=== PATIENT | male | born 1955 | race Caucasian/White ===

== ENCOUNTER → 2019-12-15 09:09 | Outpatient (BNVA) | payer MEDICARE, MEDICAID, SELFPAY | PROVIDERS: PCP Internal Medicine; Visit Provider Family Medicine Adult Medicine | DX: M96.1 Postlaminectomy syndrome, not elsewhere classified (principal); M54.12 Radiculopathy, cervical region; Z79.891 Long term (current) use of opiate analgesic | CPT/HCPCS: 99212 ==

== ENCOUNTER → 2020-02-11 08:59 | Outpatient (BNVA) | payer MEDICARE, MEDICAID, SELFPAY | PROVIDERS: PCP Internal Medicine; Visit Provider Family Medicine Adult Medicine | DX: M54.12 Radiculopathy, cervical region (principal); M96.1 Postlaminectomy syndrome, not elsewhere classified | CPT/HCPCS: 99212 ==

== ENCOUNTER → 2020-03-29 08:32 | Outpatient (BNVA) | payer MEDICARE, MEDICAID, SELFPAY | PROVIDERS: PCP Internal Medicine; Visit Provider Family Medicine Adult Medicine | DX: M54.12 Radiculopathy, cervical region (principal); M96.1 Postlaminectomy syndrome, not elsewhere classified | CPT/HCPCS: 99212 ==

== ENCOUNTER → 2020-05-10 08:03 | Outpatient (BNVA) | payer MEDICARE, MEDICAID, SELFPAY | PROVIDERS: PCP Internal Medicine; Visit Provider Family Medicine Adult Medicine | DX: M54.12 Radiculopathy, cervical region (principal); M96.1 Postlaminectomy syndrome, not elsewhere classified | CPT/HCPCS: Q3014 ==

== ENCOUNTER 2020-09-11 10:21 | Emergency (ER) | payer MEDICARE, MEDICAID, SELFPAY ==
--- NOTE | ~2020-09-11 | XR_ITS ---
EXAMINATION: XR CHEST CLINICAL INFORMATION: Weakness COMPARISON: None TECHNIQUE: 2 views of the chest were obtained. FINDINGS: Devices overlie the patient. Mild rotation to the right. There is calcification and tortuosity aorta. The cardiac size is within normal limits. There is no hilar mass. The central vessels are mildly prominent without peripheral edema. There is no consolidation or major zone of atelectasis. Lung volumes are maintained. No significant pleural fluid or pneumothorax. There may be a loose body superimposing over the left glenohumeral joint and there may be a soft tissue calcification lateral to the right proximal humerus. There may be a loose body near the right coracoclavicular ligament region. XR/XR chest 2V IMPRESSION: No focal pneumonia. No alveolar edema.
[2020-09-11 10:29] VITALS: BP 143/91; PULSE 100; PULSE 82; RESP 18; TEMP 36.8; O2SAT 95; O2SAT 99; BMI 24.2
--- NOTE | 2020-09-11 10:48 | ECG_ITS ---
Test Reason : WEAKNESS Blood Pressure : / mmHG Vent. Rate : 081 BPM Atrial Rate : 076 BPM P-R Int : 000 ms QRS Dur : 090 ms QT Int : 408 ms P-R-T Axes : 000 013 039 degrees QTc Int : 473 ms Underlying artifact Likely sinus with PACs Abnormal ECG When compared with ECG of 05-SEP-2007 15:37, No significant changes seen Referred By: Orly Duque Electronically Signed By:SAL HULL
--- NOTE | 2020-09-11 10:51 | PC.NURSE ---
pt refusing rectal temp
--- NOTE | 2020-09-11 11:01 | ED.WEAKNESS ---
HPI - Weakness General Chief complaint: Weakness <EVA Britton Last Filed: 09/11/20 14:21> Stated complaint: FATIGUE <EVA Britton Last Filed: 09/11/20 14:21> Time Seen by Provider: 09/11/20 10:37 <EVA Britton Last Filed: 09/11/20 14:21> Source: patient and EMS <EVA Britton Last Filed: 09/11/20 14:21> Mode of arrival: EMS <EVA Britton Last Filed: 09/11/20 14:21> History of Present Illness HPI Narrative: 64-year-old male with a past medical history of anxiety, HTN, depression, HLD, PVD, BIBA c/o increased weakness over the past week with diaphoresis, chills, anorexia, lightheadedness, and multiple falls. Patient reports generalized fatigue. Reports episodes of lightheadedness causing him sometimes to fall to ground/catches himself most times, denies any head trauma or LOC during these incidents. Denies fever, headache, CP/SOB, abdominal pain, nausea/vomiting, dysuria/hematuria, travel, tick/insect bites, rash <EVA Britton Last Filed: 09/11/20 14:21> MD Complaint: generalized weakness and lack of energy <EVA Britton Last Filed: 09/11/20 14:21> Related Data Home medications: Home Medications Medication Instructions Recorded Confirmed clopidogrel 75 mg tablet 75 mg PO DAILY 12/15/19 06/10/20 mirtazapine 15 mg tablet 15 mg PO BEDTIME 12/15/19 06/10/20 naproxen 500 mg tablet 500 mg PO BID 12/15/19 06/10/20 aspirin 81 mg tablet,delayed 81 mg PO DAILY 12/23/19 06/10/20 release Previous Rx's Medication Instructions Recorded naloxone 4 mg/actuation nasal spray 4 mg INTRANASAL Q2M 1 Days #2 ea 05/10/20 oxycodone-acetaminophen 5 mg-325 1 tab PO Q6H PRN 15 Days #60 tab 05/17/20 mg tablet clonidine HCl 0.1 mg tablet 0.1 mg PO TID 30 Days #180 tab 06/09/20 pravastatin 20 mg tablet 20 mg PO DAILY #90 tab 07/25/20 lisinopril 20 2 tab PO DAILY #180 tab 08/02/20 mg-hydrochlorothiazide 12.5 mg tablet carisoprodol 350 mg tablet 350 mg PO DAILY PRN 30 Days #30 tab 08/17/20 <EVA Britton - Last Filed: 09/11/20 14:21> Allergies/Adverse reactions: Allergies Allergy/AdvReac Type Severity Reaction Status Date / Time No Known Allergies Allergy Mild NONE Verified 06/12/20 10:20 <EVA Britton - Last Filed: 09/11/20 14:21> Review of Systems Review of Systems: Constitutional: No Weight loss, No Fever, + Chills, + Night Sweats, + Fatigue, + Malaise ENT/Mouth: No sore throat, No Rhinorrhea, No Swallowing Difficulty Eyes: No Eye Pain, No Swelling Cardiovascular: No Chest Pain, No SOB, No Palpitations Respiratory: No Cough, No Sputum Gastrointestinal: No Nausea, No Vomiting, No Diarrhea, No Constipation, No Abdominal pain Genitourinary: No irregular bleeding, No Dysuria, No Hematuria, No Flank Pain Musculoskeletal: No joint pain, No Myalgias, No Joint Swelling Skin: No Skin Lesions, No rash Neuro: + Weakness, No Numbness, No Loss of Consciousness, +lightheadedness, No Headache <EVA Britton Last Filed: 09/11/20 14:21> Yes all other systems are reviewed and are negative <EVA Britton Last Filed: 09/11/20 14:21> Neurologic: Denies Abnormal speech present <EVA Britton Last Filed: 09/11/20 14:21> [facility] Past Medical History Attestation statement: The following information was validated with the patient. <EVA Britton Last Filed: 09/11/20 14:21> Medical History: Medical History Anxiety Asymptomatic left ventricular systolic dysfunction Benign essential hypertension Cervical radiculopathy Degenerative lumbar spinal stenosis Depression Failed back syndrome Femoral-tibial bypass graft occlusion, right Hyperlipidemia Hypertension Impaired fasting glucose Postlaminectomy syndrome Pure hypercholesterolemia PVD (peripheral vascular disease) Renal cyst <EVA Britton Last Filed: 09/11/20 14:21> Surgical History: Surgical History History of femoropopliteal bypass History of lumbar surgery S/P laminectomy <EVA Britton - Last Filed: 09/11/20 14:21> Family History Family History: Family History Father Myocardial infarction Mother Alzheimers disease <EVA Britton - Last Filed: 09/11/20 14:21> Social History Social History: Social History Household Members Other:: Alone Alcohol intake: never Patient Tobacco Use Status: Former Tobacco user Smoked in Last 30 Days: No Use of substances other than those prescribed or required for medical reasons: No Advance Directives: No Advance Directives Information Provided: No Current occupation: Disabled approx 10 years - did various jobs <EVA Britton - Last Filed: 09/11/20 14:21> Physical Exam Vital Signs: Vital Signs: Last Vital Signs Temp 98.2 F 09/11/20 10:29 Pulse 82 09/11/20 10:29 Resp 18 09/11/20 10:29 BP 143/91 H 09/11/20 10:29 Pulse Ox 95 09/11/20 10:29 Body Mass Index 24.2 <EVA Britton - Last Filed: 09/11/20 14:21> Vital Signs: Last Vital Signs Temp 98.2 F 09/11/20 10:29 Pulse 82 09/11/20 10:29 Resp 18 09/11/20 10:29 BP 143/91 H 09/11/20 10:29 Pulse Ox 95 09/11/20 10:29 Body Mass Index 24.2 <Luis Felipe Meyer MD - Last Filed: 09/11/20 12:08> Const: Other: diaphoretic/clammy <EVA Britton - Last Filed: 09/11/20 14:21> General: cooperative <EVA Britton - Last Filed: 09/11/20 14:21> Orientation/consciousness: patient oriented x3 <Orly Reynoldsoste, [facility] Last Filed: 09/11/20 14:21> Limitations: no limitations <Orly Dunia [facility] Last Filed: 09/11/20 14:21> HENMT: Head: Yes normal to inspection <Orly Dunia [facility] Last Filed: 09/11/20 14:21> Ears: hearing grossly normal bilaterally <Orly Duque [facility] Last Filed: 09/11/20 14:21> General nose exam: Normal external nose present <Orlychristiano Duque [facility] Last Filed: 09/11/20 14:21> Face and sinus: Yes normal facial exam <Orlychristiano Duque [facility] Last Filed: 09/11/20 14:21> Eyes: General: appearance normal, both eyes and all related structures <Orlychristiano Duque [facility] Last Filed: 09/11/20 14:21> Pupils: Equal, round and reactive pupils present <Orly Duque [facility] Last Filed: 09/11/20 14:21> EOM: EOMs intact bilaterally <Orlychristiano Duque [facility] Last Filed: 09/11/20 14:21> Neck: Neck: Yes normal visual inspection <Orlychristiano Duque [facility] Last Filed: 09/11/20 14:21> Resp: Effort & Inspection: normal respiratory effort <Orlychristiano Duque [facility] Last Filed: 09/11/20 14:21> Auscultation: clear to auscultation bilaterally, no rales, no rhonchi and no wheezes <Orly Duque [facility] Last Filed: 09/11/20 14:21> Cardio: Rate: regular rate <Orlychristiano Duque [facility] Last Filed: 09/11/20 14:21> Heart sounds: S1 normal heart sound present and S2 normal heart sound present <Orly Duque [facility] Last Filed: 09/11/20 14:21> GI: Inspection: Yes normal to inspection <Orly Duque [facility] Last Filed: 09/11/20 14:21> Palpation (GI): Soft to palpation, nontender, no guarding and not rigid <Orly Duque [facility] Last Filed: 09/11/20 14:21> Skin: Rashes: no rashes <Orly Duque PA - Last Filed: 09/11/20 14:21> Wounds: no wounds <Orly Duque PA - Last Filed: 09/11/20 14:21> Neuro: General: patient oriented x3, tone normal, moves all extremities, no focal motor deficits and CN's II-XI intact bilaterally <Orly Duque PA - Last Filed: 09/11/20 14:21> Cranial nerves: Yes Equal, round and reactive pupils present <Orly Duque PA - Last Filed: 09/11/20 14:21> Cognition (Neuro): normal cognition <Orly Duque PA - Last Filed: 09/11/20 14:21> Speech: No Abnormal speech present <Orly Duque PA - Last Filed: 09/11/20 14:21> Motor exam (neuro): 5/5 motor strength present throughout and Pronator motor function not present <Orly Duque PA - Last Filed: 09/11/20 14:21> Coordination: [id number] test normal <Orly Reynoldsamber PA - Last Filed: 09/11/20 14:21> Extrem: General: Yes normal to inspection and Yes no pedal edema <Orly Reynoldsamber PA - Last Filed: 09/11/20 14:21> Course Course Course Narrative: -1121--AFib appears new for patient > likely reason for patient falling -1158--no leukocytosis, H/H is stable, potassium slightly low 40 mEq p.o. repletion ordered. + BO BUN 37 / Creatinine 1.49 likely from dehydration will give IVF and repeat -AST/ALT mildly elevated, troponin 12.4 > will obtain 3 hour repeat, CPK elevated to 980 XR chest 2V IMPRESSION: No focal pneumonia. No alveolar edema. >> plan to admit for further management. 1237pm-discussed with patient plan for admission for further management which he is refusing secondary to having pets at home, discussed with patient he will need to sign out against medical advice, he is A&O x3 competent to make his own decisions. Will give 3 L IVF, attempt repeat lab draw if patient willing to stay then have him sign out AMA -1419--repeat troponin without 50% rise, MO unlikely. Chads Vasc score 3 which would recommend patient to be started on anticoagulation, however due to recent/frequent falls and BO will hold off on initiating anticoagulation due to risk of bleeding, this was discussed with patient including need her for close follow-up with Cardiology. Patient is signing out AMA, AMA risks discussed <EVA Britton - Last Filed: 09/11/20 14:21> Reevaluation(s) Reevaluation #1: I have discussed the case and management with the NATHANIEL <Luis Felipe Meyer MD - Last Filed: 09/11/20 12:08> MDM - Weakness MDM Narrative Medical decision making narrative: 64-year-old male with a past medical history of anxiety, HTN, depression, HLD, PVD, BIBA c/o increased weakness over the past week with diaphoresis, chills, anorexia, lightheadedness, and multiple falls. Patient reports generalized fatigue. Reports episodes of lightheadedness causing him sometimes to fall to ground/catches himself most times. On exam vital signs stable, profusely diaphoretic, exam nonfocal, lungs CTA, abdomen soft/nontender. Concern for metabolic abnormalities vs infectious etiology vs withdrawal vs ? Tick-borne illness Pain: EKG, labs, UA, CXR, IVF, reassess <EVA Britton - Last Filed: 09/11/20 14:21> Medical Records Attestation: I reviewed the patient's medical records. <EVA Britton - Last Filed: 09/11/20 14:21> Lab Data Attestation: I reviewed the patient's lab results. <EVA Britton - Last Filed: 09/11/20 14:21> Result diagrams: : 09/11/20 11:06 09/11/20 11:06 <EVA Britton - Last Filed: 09/11/20 14:21> Labs: Lab Results 09/11/20 09/11/20 09/11/20 Range/Units 11:06 11:06 11:06 WBC 8.8 (4.8-10.8) X10*3/uL RBC 5.34 (4.60-5.80) X10*6/uL Hgb 16.2 (14.0-18.0) g/dl Hct 46.7 (42-52) % MCV 87.5 (80-98) fL MCH 30.3 (27.0-33.0) pg MCHC 34.7 (31.0-36.0) g/dl RDW 13.2 (11.0-16.0) % Plt Count 321 (160-400) X10*3/uL MPV 11.3 (9.4-12.4) fL Immature Gran % (Auto) 0.6 H (0.0-0.4) % Neut % (Auto) 69.6 (45-73) % Lymph % (Auto) 15.6 L (20-40) % [place] % (Auto) 12.5 H (2-11) % Eos % (Auto) 1.5 (0-4) % Baso % (Auto) 0.2 (0-2) % Lymph # (Auto) 1.4 (1.2-4.9) X10*3/uL [place] # (Auto) 1.1 (0.1-1.2) X10*3/uL Eos # (Auto) 0.1 (0.0-0.4) X10*3/uL Baso # (Auto) 0.0 (0.0-0.2) X10*3/uL Abs Immat Gran (auto) 0.05 H (0.00-0.03) X10*3/uL Absolute Neuts (auto) 6.1 (2.0-8.3) X10*3/uL Absolute Nucleated RBC 0.000 (0.0-0.012) X10*3/uL Nucleated RBC % (auto) 0.0 (0.0-0.2) /100WBC Sodium 136 (135-145) mmol/L Potassium 3.1 L (3.3-5.1) mmol/L Chloride 95 L (96-108) mmol/L Carbon Dioxide 27 (22-29) mmol/L Anion Gap 17 (12-20) BUN 37 H (9-16) mg/dL Creatinine 1.49 H (0.5-1.4) mg/dL Estim Creat Clear Calc 44.0 Estimated GFR 47 Random Glucose 189 H (60-115) mg/dL Lactic Acid (0.5-2.0) mmol/L Calcium 9.2 (8.4-10.2) mg/dL Magnesium 2.9 H (1.6-2.6) mg/dL Total Bilirubin 0.6 (0.0-1.0) mg/dL Direct Bilirubin 0.3 (0.0-0.5) mg/dL AST 75 H (5-37) U/L ALT 61 H (0-40) U/L Alkaline Phosphatase 50 (39-117) U/L Total Creatine Kinase 980 H (38-174) U/L Troponin I High Sens 12.4 (<3.5-35.0) ng/L Total Protein 7.3 (6.5-8.0) g/dL Albumin 4.0 (3.5-5.0) g/dL Lipase 40 (8-78) U/L Salicylates < 5.0 L (15-30) mg/dL Acetaminophen 1 (<30) mcg/mL Ethyl Alcohol mg/dL Acetone, Qual (Negative) 09/11/20 09/11/20 09/11/20 Range/Units 11:06 11:06 11:06 WBC (4.8-10.8) X10*3/uL RBC (4.60-5.80) X10*6/uL Hgb (14.0-18.0) g/dl Hct (42-52) % MCV (80-98) fL MCH (27.0-33.0) pg MCHC (31.0-36.0) g/dl RDW (11.0-16.0) % Plt Count (160-400) X10*3/uL MPV (9.4-12.4) fL Immature Gran % (Auto) (0.0-0.4) % Neut % (Auto) (45-73) % Lymph % (Auto) (20-40) % [place] % (Auto) (2-11) % Eos % (Auto) (0-4) % Baso % (Auto) (0-2) % Lymph # (Auto) (1.2-4.9) X10*3/uL [place] # (Auto) (0.1-1.2) X10*3/uL Eos # (Auto) (0.0-0.4) X10*3/uL Baso # (Auto) (0.0-0.2) X10*3/uL Abs Immat Gran (auto) (0.00-0.03) X10*3/uL Absolute Neuts (auto) (2.0-8.3) X10*3/uL Absolute Nucleated RBC (0.0-0.012) X10*3/uL Nucleated RBC % (auto) (0.0-0.2) /100WBC Sodium (135-145) mmol/L Potassium (3.3-5.1) mmol/L Chloride (96-108) mmol/L Carbon Dioxide (22-29) mmol/L Anion Gap (12-20) BUN (9-16) mg/dL Creatinine (0.5-1.4) mg/dL Estim Creat Clear Calc Estimated GFR Random Glucose (60-115) mg/dL Lactic Acid 1.2 (0.5-2.0) mmol/L Calcium (8.4-10.2) mg/dL Magnesium (1.6-2.6) mg/dL Total Bilirubin (0.0-1.0) mg/dL Direct Bilirubin (0.0-0.5) mg/dL AST (5-37) U/L ALT (0-40) U/L Alkaline Phosphatase (39-117) U/L Total Creatine Kinase (38-174) U/L Troponin I High Sens (<3.5-35.0) ng/L Total Protein (6.5-8.0) g/dL Albumin (3.5-5.0) g/dL Lipase (8-78) U/L Salicylates (15-30) mg/dL Acetaminophen (<30) mcg/mL Ethyl Alcohol < 10 mg/dL Acetone, Qual Negative (Negative) 09/11/20 Range/Units 12:53 WBC (4.8-10.8) X10*3/uL RBC (4.60-5.80) X10*6/uL Hgb (14.0-18.0) g/dl Hct (42-52) % MCV (80-98) fL MCH (27.0-33.0) pg MCHC (31.0-36.0) g/dl RDW (11.0-16.0) % Plt Count (160-400) X10*3/uL MPV (9.4-12.4) fL Immature Gran % (Auto) (0.0-0.4) % Neut % (Auto) (45-73) % Lymph % (Auto) (20-40) % [place] % (Auto) (2-11) % Eos % (Auto) (0-4) % Baso % (Auto) (0-2) % Lymph # (Auto) (1.2-4.9) X10*3/uL [place] # (Auto) (0.1-1.2) X10*3/uL Eos # (Auto) (0.0-0.4) X10*3/uL Baso # (Auto) (0.0-0.2) X10*3/uL Abs Immat Gran (auto) (0.00-0.03) X10*3/uL Absolute Neuts (auto) (2.0-8.3) X10*3/uL Absolute Nucleated RBC (0.0-0.012) X10*3/uL Nucleated RBC % (auto) (0.0-0.2) /100WBC Sodium (135-145) mmol/L Potassium (3.3-5.1) mmol/L Chloride (96-108) mmol/L Carbon Dioxide (22-29) mmol/L Anion Gap (12-20) BUN (9-16) mg/dL Creatinine (0.5-1.4) mg/dL Estim Creat Clear Calc Estimated GFR Random Glucose (60-115) mg/dL Lactic Acid (0.5-2.0) mmol/L Calcium (8.4-10.2) mg/dL Magnesium (1.6-2.6) mg/dL Total Bilirubin (0.0-1.0) mg/dL Direct Bilirubin (0.0-0.5) mg/dL AST (5-37) U/L ALT (0-40) U/L Alkaline Phosphatase (39-117) U/L Total Creatine Kinase (38-174) U/L Troponin I High Sens 13.7 (<3.5-35.0) ng/L Total Protein (6.5-8.0) g/dL Albumin (3.5-5.0) g/dL Lipase (8-78) U/L Salicylates (15-30) mg/dL Acetaminophen (<30) mcg/mL Ethyl Alcohol mg/dL Acetone, Qual (Negative) <Orly Dunia, PA - Last Filed: 09/11/20 14:21> Lab Results 09/11/20 09/11/20 09/11/20 Range/Units 11:06 11:06 11:06 WBC 8.8 (4.8-10.8) X10*3/uL RBC 5.34 (4.60-5.80) X10*6/uL Hgb 16.2 (14.0-18.0) g/dl Hct 46.7 (42-52) % MCV 87.5 (80-98) fL MCH 30.3 (27.0-33.0) pg MCHC 34.7 (31.0-36.0) g/dl RDW 13.2 (11.0-16.0) % Plt Count 321 (160-400) X10*3/uL MPV 11.3 (9.4-12.4) fL Immature Gran % (Auto) 0.6 H (0.0-0.4) % Neut % (Auto) 69.6 (45-73) % Lymph % (Auto) 15.6 L (20-40) % [place] % (Auto) 12.5 H (2-11) % Eos % (Auto) 1.5 (0-4) % Baso % (Auto) 0.2 (0-2) % Lymph # (Auto) 1.4 (1.2-4.9) X10*3/uL [place] # (Auto) 1.1 (0.1-1.2) X10*3/uL Eos # (Auto) 0.1 (0.0-0.4) X10*3/uL Baso # (Auto) 0.0 (0.0-0.2) X10*3/uL Abs Immat Gran (auto) 0.05 H (0.00-0.03) X10*3/uL Absolute Neuts (auto) 6.1 (2.0-8.3) X10*3/uL Absolute Nucleated RBC 0.000 (0.0-0.012) X10*3/uL Nucleated RBC % (auto) 0.0 (0.0-0.2) /100WBC Sodium 136 (135-145) mmol/L Potassium 3.1 L (3.3-5.1) mmol/L Chloride 95 L (96-108) mmol/L Carbon Dioxide 27 (22-29) mmol/L Anion Gap 17 (12-20) BUN 37 H (9-16) mg/dL Creatinine 1.49 H (0.5-1.4) mg/dL Estim Creat Clear Calc 44.0 Estimated GFR 47 Random Glucose 189 H (60-115) mg/dL Lactic Acid (0.5-2.0) mmol/L Calcium 9.2 (8.4-10.2) mg/dL Magnesium 2.9 H (1.6-2.6) mg/dL Total Bilirubin 0.6 (0.0-1.0) mg/dL Direct Bilirubin 0.3 (0.0-0.5) mg/dL AST 75 H (5-37) U/L ALT 61 H (0-40) U/L Alkaline Phosphatase 50 (39-117) U/L Total Creatine Kinase 980 H (38-174) U/L Troponin I High Sens 12.4 (<3.5-35.0) ng/L Total Protein 7.3 (6.5-8.0) g/dL Albumin 4.0 (3.5-5.0) g/dL Lipase 40 (8-78) U/L Salicylates < 5.0 L (15-30) mg/dL Acetaminophen 1 (<30) mcg/mL Ethyl Alcohol mg/dL Acetone, Qual (Negative) 09/11/20 09/11/20 09/11/20 Range/Units 11:06 11:06 11:06 WBC (4.8-10.8) X10*3/uL RBC (4.60-5.80) X10*6/uL Hgb (14.0-18.0) g/dl Hct (42-52) % MCV (80-98) fL MCH (27.0-33.0) pg MCHC (31.0-36.0) g/dl RDW (11.0-16.0) % Plt Count (160-400) X10*3/uL MPV (9.4-12.4) fL Immature Gran % (Auto) (0.0-0.4) % Neut % (Auto) (45-73) % Lymph % (Auto) (20-40) % [place] % (Auto) (2-11) % Eos % (Auto) (0-4) % Baso % (Auto) (0-2) % Lymph # (Auto) (1.2-4.9) X10*3/uL [place] # (Auto) (0.1-1.2) X10*3/uL Eos # (Auto) (0.0-0.4) X10*3/uL Baso # (Auto) (0.0-0.2) X10*3/uL Abs Immat Gran (auto) (0.00-0.03) X10*3/uL Absolute Neuts (auto) (2.0-8.3) X10*3/uL Absolute Nucleated RBC (0.0-0.012) X10*3/uL Nucleated RBC % (auto) (0.0-0.2) /100WBC Sodium (135-145) mmol/L Potassium (3.3-5.1) mmol/L Chloride (96-108) mmol/L Carbon Dioxide (22-29) mmol/L Anion Gap (12-20) BUN (9-16) mg/dL Creatinine (0.5-1.4) mg/dL Estim Creat Clear Calc Estimated GFR Random Glucose (60-115) mg/dL Lactic Acid 1.2 (0.5-2.0) mmol/L Calcium (8.4-10.2) mg/dL Magnesium (1.6-2.6) mg/dL Total Bilirubin (0.0-1.0) mg/dL Direct Bilirubin (0.0-0.5) mg/dL AST (5-37) U/L ALT (0-40) U/L Alkaline Phosphatase (39-117) U/L Total Creatine Kinase (38-174) U/L Troponin I High Sens (<3.5-35.0) ng/L Total Protein (6.5-8.0) g/dL Albumin (3.5-5.0) g/dL Lipase (8-78) U/L Salicylates (15-30) mg/dL Acetaminophen (<30) mcg/mL Ethyl Alcohol < 10 mg/dL Acetone, Qual Negative (Negative) 09/11/20 Range/Units 12:53 WBC (4.8-10.8) X10*3/uL RBC (4.60-5.80) X10*6/uL Hgb (14.0-18.0) g/dl Hct (42-52) % MCV (80-98) fL MCH (27.0-33.0) pg MCHC (31.0-36.0) g/dl RDW (11.0-16.0) % Plt Count (160-400) X10*3/uL MPV (9.4-12.4) fL Immature Gran % (Auto) (0.0-0.4) % Neut % (Auto) (45-73) % Lymph % (Auto) (20-40) % [place] % (Auto) (2-11) % Eos % (Auto) (0-4) % Baso % (Auto) (0-2) % Lymph # (Auto) (1.2-4.9) X10*3/uL [place] # (Auto) (0.1-1.2) X10*3/uL Eos # (Auto) (0.0-0.4) X10*3/uL Baso # (Auto) (0.0-0.2) X10*3/uL Abs Immat Gran (auto) (0.00-0.03) X10*3/uL Absolute Neuts (auto) (2.0-8.3) X10*3/uL Absolute Nucleated RBC (0.0-0.012) X10*3/uL Nucleated RBC % (auto) (0.0-0.2) /100WBC Sodium (135-145) mmol/L Potassium (3.3-5.1) mmol/L Chloride (96-108) mmol/L Carbon Dioxide (22-29) mmol/L Anion Gap (12-20) BUN (9-16) mg/dL Creatinine (0.5-1.4) mg/dL Estim Creat Clear Calc Estimated GFR Random Glucose (60-115) mg/dL Lactic Acid (0.5-2.0) mmol/L Calcium (8.4-10.2) mg/dL Magnesium (1.6-2.6) mg/dL Total Bilirubin (0.0-1.0) mg/dL Direct Bilirubin (0.0-0.5) mg/dL AST (5-37) U/L ALT (0-40) U/L Alkaline Phosphatase (39-117) U/L Total Creatine Kinase (38-174) U/L Troponin I High Sens 13.7 (<3.5-35.0) ng/L Total Protein (6.5-8.0) g/dL Albumin (3.5-5.0) g/dL Lipase (8-78) U/L Salicylates (15-30) mg/dL Acetaminophen (<30) mcg/mL Ethyl Alcohol mg/dL Acetone, Qual (Negative) <Luis Felipe Meyer MD - Last Filed: 09/11/20 12:08> ECG Data Attestation: I personally reviewed and interpreted this ECG as follows: <EVA Britton - Last Filed: 09/11/20 14:21> ECG interpretation date: 09/11/20 <EVA Britton - Last Filed: 09/11/20 14:21> ECG interpretation time: 11:08 <EVA Britton - Last Filed: 09/11/20 14:21> Prior ECG tracings: available for review <EVA Britton - Last Filed: 09/11/20 14:21> Interpretation: EKG showing atrial fibrillation with a rate of 81. QTC 473. Artifact present, no STEMI <EVA Britton - Last Filed: 09/11/20 14:21> Scores Additional Scores [id number] Score: Score: 3 <EVA Britton Last Filed: 09/11/20 14:21> Comment: ?moderate-high? risk and should otherwise be an anticoagulation candidate >> patient already takes aspirin 81 and Plavix. However patient its presentation to emergency department is for weakness with multiple falls, will not initiate anticoagulation therapy due to increased risk of bleeding with falls. <EVA Britton Last Filed: 09/11/20 14:21> Discharge Plan Discharge Clinical Impression: Atrial fibrillation, new onset, BO (acute kidney injury), Rhabdomyolysis, Hypokalemia <EVA Britton Last Filed: 09/11/20 14:21> Patient Disposition: Left Against Medical Advice <EVA Britton Last Filed: 09/11/20 14:21> Instructions: A-fib (Atrial Fibrillation) (ED), Acute Kidney Injury (DC), Rhabdomyolysis (ED) <EVA Britton - Last Filed: 09/11/20 14:21> Additional Instructions: You are in a new heart rhythm called atrial fibrillation, this with you at high risk of strokes, you should be on a blood thinner however due to your kidney injury and frequent/recent falls this puts you at high risk of bleeding thus we did not start you on a blood thinner today Continue taking her aspirin and Plavix, you need to see a crop research scientist as soon as possible Your kidneys are also hurting, you need to push fluids, you have high levels of muscle breakdown in her system, this can lead to kidney failure Against medical advice, you are welcome to return any time for treatment, if her symptoms persist or worsen, you have more or recent falls, you are unable to eat or drink, developed chest pain or shortness of breath, any stroke like symptoms please return to the ED immediately COVID-19 and Lyme titer are pending right now, if these are positive you should get a phone call If you leave you may , go further into renal failure, eventually require dialysis and permanently become disabled <EVA Britton - Last Filed: 09/11/20 14:21> Prescriptions: No Action clonidine HCl 0.1 mg tablet 0.1 mg PO TID 30 Days Qty: 180 RF: 0 pravastatin 20 mg tablet 20 mg PO DAILY Qty: 90 RF: 1 lisinopril-hydrochlorothiazide 20-12.5 mg tablet 2 tab PO DAILY Qty: 180 RF: 1 carisoprodol 350 mg tablet 350 mg PO DAILY PRN (Reason: muscle pain) 30 Days Qty: 30 RF: 0 aspirin [Adult Low Dose Aspirin] 81 mg tablet,delayed release (DR/EC) 81 mg PO DAILY RF: 0 clopidogrel 75 mg tablet 75 mg PO DAILY RF: 0 mirtazapine 15 mg tablet 15 mg PO BEDTIME RF: 0 naproxen 500 mg tablet 500 mg PO BID RF: 0 Narcan 4 mg/actuation spray,non-aerosol 4 mg intranasal Q2M 1 Days Qty: 2 RF: 1 oxycodone-acetaminophen 5-325 mg tablet 1 tab PO Q6H PRN (Reason: pain) 15 Days Qty: 60 RF: 0 Hold Instructions: Doctor's Order <EVA Britton - Last Filed: 09/11/20 14:21> Referrals: Henrry Barnard MD [Primary Care Provider] - 2 days Jake Flores MD [Physician] - 2 days <EVA Britton - Last Filed: 09/11/20 14:21>
[2020-09-11 11:12] LABS: MANUAL DIFF FLAG NO
[2020-09-11 11:14] LABS: Basophils Percent Auto 0.2 % (0-2); Eosinophils Absolute Auto 0.1 X10*3/uL (0.0-0.4); Eosinophils Percent Auto 1.5 % (0-4); Hematocrit 46.7 % (42-52); Hemoglobin 16.2 g/dl (14.0-18.0); Imm Gran Abs Auto 0.05 X10*3/uL (0.00-0.03); Imm Gran Pct Auto 0.6 % (0.0-0.4); Lymphocytes Absolute Auto 1.4 X10*3/uL (1.2-4.9); Lymphocytes Percent Auto 15.6 % (20-40); Mean Corpuscular HGB Conc 34.7 g/dl (31.0-36.0); Mean Corpuscular Hemoglobin 30.3 pg (27.0-33.0); Mean Corpuscular Volume 87.5 fL (80-98); Mean Platelet Volume 11.3 fL (9.4-12.4); Monocytes Absolute Auto 1.1 X10*3/uL (0.1-1.2); Monocytes Percent Auto 12.5 % (2-11); Neutrophils Absolute Auto 6.1 X10*3/uL (2.0-8.3); Neutrophils Percent Auto 69.6 % (45-73); Platelet Count 321 X10*3/uL (160-400); Red Blood Count 5.34 X10*6/uL (4.60-5.80); Red Cell Distribution Width 13.2 % (11.0-16.0); White Blood Count 8.8 X10*3/uL (4.8-10.8)
[2020-09-11] MEDS: 0.9 % Sodium Chloride 1,000 ML 999 ML IVCONT ×3 (11:23→12:49)
[2020-09-11 11:32] LABS: Lactic Acid 1.2 mmol/L (0.5-2.0)
[2020-09-11 11:33] LABS: Acetone, serum QL Negative (Negative)
[2020-09-11 11:34] LABS: Ethanol < 10 mg/dL
[2020-09-11 11:38] LABS: Alanine Aminotransferase 61 U/L (0-40); Alkaline Phosphatase 50 U/L (39-117); Anion Gap 17 (12-20); Aspartate Amino Transferase 75 U/L (5-37); Bilirubin Direct 0.3 mg/dL (0.0-0.5); Bilirubin Total 0.6 mg/dL (0.0-1.0); Blood Urea Nitrogen 37 mg/dL (9-16); Calcium 9.2 mg/dL (8.4-10.2); Carbon Dioxide 27 mmol/L (22-29); Chloride 95 mmol/L (96-108); Estimated Glomerular Filt Rate 47; Glucose Random 189 mg/dL (60-115); Lipase 40 U/L (8-78); Magnesium 2.9 mg/dL (1.6-2.6); Potassium 3.1 mmol/L (3.3-5.1); Sodium 136 mmol/L (135-145); Total Protein 7.3 g/dL (6.5-8.0)
[2020-09-11 11:41] LABS: Troponin-I High Sensitivity 12.4 ng/L (<3.5-35.0)
[2020-09-11] MEDS: Potassium Chloride Packet 20 MEQ PACKET 40 MEQ PO (12:18)
[2020-09-11 12:25] LABS: Salicylate < 5.0 mg/dL (15-30)
[2020-09-11 12:33] LABS: Acetaminophen LAB 1 mcg/mL (<30)
[2020-09-11 13:25] LABS: Troponin-I High Sensitivity 13.7 ng/L (<3.5-35.0)
--- NOTE | 2020-09-11 14:00 | PC.NURSE ---
RN aware PATIENT REFUSED LAB WORK
[2020-09-11 14:09] LABS: Influenza A PCR NEGATIVE (Negative); Influenza B PCR NEGATIVE (Negative); Resp Syncy Virus RNA Qual PCR NEGATIVE (Negative); SARS COV2 PCR INHOUSE NEGATIVE (Negative)
[2020-09-12 18:05] LABS: Lyme Abs Screen <0.90 index
== END 2020-09-11 14:42 | disposition left against medical advice (07) ==
PROVIDERS: Physician Assistant; Emergency Provider Emergency Medicine; PCP Internal Medicine
DX: I48.91 Unspecified atrial fibrillation (principal); N17.9 Acute kidney failure, unspecified; M62.82 Rhabdomyolysis; E87.6 Hypokalemia; R29.6 Repeated falls; I10 Essential (primary) hypertension; E78.00 Pure hypercholesterolemia, unspecified; E78.5 Hyperlipidemia, unspecified; Z20.822 Contact with and (suspected) exposure to COVID-19; Z79.02 Long term (current) use of antithrombotics/antiplatelets; Z79.899 Other long term (current) drug therapy; Z79.82 Long term (current) use of aspirin
CPT/HCPCS: 0241U; 36415; 71046; 80048; 80076; 80143; 80179; 82009; 82077; 82550; 83605; 83690; 83735; 84484; 85025; 86617; 86618; 87040; 87147; 87205; 93005; 96360; 96361; 99284; 99285

== ENCOUNTER → 2022-01-24 10:58 | Outpatient (BNVA) | payer MEDICARE, MEDICAID, SELFPAY | PROVIDERS: PCP Internal Medicine; Visit Provider Orthopaedic Surgery | DX: M65.332 Trigger finger, left middle finger (principal) | CPT/HCPCS: 20550; 99202; J1100 ==

== ENCOUNTER 2022-12-25 10:38 | Outpatient (AMB) | payer MEDICARE, MEDICAID, SELFPAY ==
--- NOTE | 2022-12-25 11:07 | MHC.PC.OV ---
Vital Signs 12/25/22 11:08 Height 5 ft 3 in Weight 137 lb 4 oz BMI 24.3 BP 132/72 Blood Pressure Location Lt brachial Position Sitting Pulse 65 Pulse Source Pulse Oximeter Pulse Oximetry (%) 97 Oxygen Delivery Method Room Air Intake Visit Reasons: 6 month f/u Drug And Alcohol Counselor Required: No Accompanied by: Self / Same As Patient Allergies trazodone Adverse Reaction (Uncoded 12/25/22 11:44) dizziness, heart racing Medication List - Last Reconciled 12/25/22 by Henrry Barnard MD aspirin (Adult Low Dose Aspirin) 81 mg PO DAILY clopidogrel 75 mg PO DAILY 90 days lisinopril-hydrochlorothiazide 20-12.5 mg 1 tab PO DAILY 90 days pravastatin 20 mg PO DAILY 90 days Tobacco use date assessed: 06/20/22 Fall risk assessment: No Falls in past year Last assessed Fall Risk: 12/25/22 Dental Screening Dental Screen Date: 12/25/22 Did you have a dental visit in the last 12 months?: Yes Did you have a dental problem in the last 6 months where you did not have access to dental care?: No Was dental information given to patient?: Patient has dentist HPI 6 month f/u HPI Details Patient comes in today for his follow up visit States that he continues to experience chronic low back pain and still has trouble sleeping at night, primarily due to his low back pain He was started on Trazodone previously but he stopped taking this a while back due to side effects - states that he felt hung over all the time when he was taking Trazodone; also recalls feeling dizzy and his heart felt like it was racing often whenever he took Trazodone Would like to see if there is anything else we can prescribe to help with his sleep as well as his chronic low back pain that is not a narcotic as OTC Ibuprofen alone is not cutting (affecting) his pain at all Have offered to start him on Gabapentin in the past but he declined and still does not want to start on it now - states that he has heard a lot of bad things and side effects with Gabapentin Relates increased fatigue often, mostly due to his not getting much sleep at night He denies any headaches or dizziness Denies any chest pains, no SOB No nausea/vomiting, no abdominal pain No change in bowel habits noted Adds that he stopped taking his low dose Aspirin a while back as he has also heard some side effects of long-term Aspirin Tx - is not sure if he should continue on this or not Will need all of his Rx refilled He also has not had his follow up done lately - advised that it has been over 2 years now since he's had labs done and should get them [facility] Medical History (Updated 12/25/22 @ 12:51 by Henrry Barnard MD) Peripheral artery disease Insomnia Depression Anxiety Impaired fasting glucose Pure hypercholesterolemia Benign essential hypertension Postlaminectomy syndrome Degenerative lumbar spinal stenosis Femoral-tibial bypass graft occlusion, right Asymptomatic left ventricular systolic dysfunction Renal cyst PVD (peripheral vascular disease) Hyperlipidemia Hypertension Cervical radiculopathy Failed back syndrome Surgical History History of lumbar surgery History of femoropopliteal bypass S/P laminectomy Family History Father Myocardial infarction Mother Alzheimers disease Social History Household Members Other:: Alone Housing: House Alcohol intake: never Patient Tobacco Use Status: Former Tobacco user Tobacco use type: Cigarette e-Cigarette/Vaping Use: Never Used Second Hand Smoke Exposure: Yes service: No Current occupational status: retired Current occupation: Disabled approx 10 years - did various jobs/ right hand dominant Cognitive needs: Yes Hearing needs: No Vision needs: No Questionnaire PHQ-9 Over the last 2 weeks, how often have you been bothered by any of the following problems? 1. Little interest or pleasure in doing things: not at all 2. Feeling down, depressed, or hopeless: not at all 3. Trouble falling or staying asleep, or sleeping too much: not at all 4. Feeling tired or having little energy: not at all 5. Poor appetite or overeating: not at all 6. Feeling bad about yourself - or that you are a failure or have let yourself or your family down: not at all 7. Trouble concentrating on things, such as reading the newspaper or watching television: not at all 8. Moving or speaking so slowly that other people could have noticed. Or the opposite - being so fidgety or restless that you have been moving around a lot more than usual: not at all 9. Thoughts that you would be better off or of hurting yourself in some way: not at all Total score: 0 Depression Screening Interpretation: Negative Depression Screening Done: Yes 89661 - PHQ-9 Billing: Yes Source: Developed by Drs. Jesus Soriano, Sandy Carson, Elvin Leone and colleagues, with an educational oracio from [employer]. Thrive Questionnaire Date Thrive assessed: 06/20/22 AUDIT C Alcohol Use Questionnaire (AUDIT-C) 1. How often do you have a drink containing alcohol?: Never 3. How often do you have six or more drinks on one occasion?: Never Total Score: 0 Score Reviewed/Action Taken: Yes NAOMI-7 AMB Questionnaire NAOMI-7 Date NAOMI - 7 assessed: 06/20/22 Source: Developed by Drs. Jesus Soriano, Sandy Crason, Elvin Leone and colleagues, with an educational oracio from [employer]. Review of Systems Const Reports difficulty sleeping, Reports fatigue, Denies fever(s) and Denies headache(s) ENT Denies dysphagia, Denies dizziness, Denies otalgia, Denies headache(s), Reports neck pain (chronic), Denies odynophagia and Denies sore throat Card Denies chest pain, Denies palpitations and Denies dyspnea Resp Denies cough and Denies dyspnea GI Denies abdominal pain, Denies constipation, Denies dysphagia, Denies heartburn, Denies diarrhea, Denies nausea, Denies odynophagia and Denies vomiting Denies dysuria, Denies nocturia and Denies urinary frequency Musc Details: recurrent contracture and stiffness of the left middle finger Reports back pain (chronic - increased), Reports neck pain (chronic) and Reports stiffness (of both hands) Skin/Breast Denies rash Neuro Denies dizziness and Denies headache(s) Psych Reports anxiety Endo Reports fatigue and Denies palpitations Physical exam (Primary Care) Vital Signs: Last Vital Signs Pulse 65 12/25/22 11:08 BP 132/72 12/25/22 11:08 Pulse Ox 97 12/25/22 11:08 Oxygen Delivery Method Room Air 12/25/22 11:08 BMI result Body Mass Index 24.3 Tobacco/Smoking Status: Tobacco use Status Tobacco use date assessed 06/20/22 12/25/22 11:09 Patient Tobacco Use Status Former Tobacco user 12/25/22 11:09 Tobacco use type Cigarette 12/25/22 11:09 e-Cigarette/Vaping Use Never Used 12/25/22 11:09 PHQ-9: PHQ-9 Score PHQ-9: Total score 0 12/25/22 11:11 Depression Screening Interpretation: Negative Thrive Assessment: Date of Thrive Assessment Date Thrive assessed 06/20/22 12/25/22 11:09 Const General: no acute distress and alert HENMT Mouth: Normal oral and palatal mucosa present Throat: Yes posterior oropharynx normal and Yes tonsils normal (no TP congestion) Neck Neck: Yes no lymphadenopathy and Yes tender Resp Auscultation: clear to auscultation bilaterally, no rales and no wheezes Cardio Rate: regular rate Rhythm: regular rhythm Heart sounds: no murmurs GI Palpation (GI): Soft to palpation and nontender Auscultation: normal bowel sounds Back/Spine/Pelvis Cervical Spine: Cervical spine tenderness Thoracic/Lumbar Spine: lumbar spinal tenderness Skin Rashes: no rashes Extrem Other: (+) small non-tender nodules noted on exam of the left hand, with slightly prominent IP joints on both hands, especially the MIP General: Yes no clubbing, cyanosis or edema Assessment and Plan Assessment & Plan (1) Failed back syndrome: Code(s): M96.1 - Postlaminectomy syndrome, not elsewhere classified Plan: Patient was discharged from pain management by Dr. oM a couple of years ago due to a failed UDS - patient still feels that he was inappropriately discharged and was never given a chance to explain his side of the story He was reminded again that he was suspended and not discharged, and that he can actually go back with them again after 05/17/2021 but he chooses NOT to do so Have offered to refer him to other pain management practices in the area but advised that most of them offer only injection treatments, which patient is strongly opposed to as he is insistent that only opioid Rxs have helped him in the past He agreed to try going to [place] [facility] [place] [facility] [place] can offer him for his chronic low back pain although he remains very hesitant about getting any surgical procedures done - was referred back in June 2022 but it looks like no appointment was ever scheduled for him Continue Carisoprodol 350 mg TID PRN Will start him on a trial of Duloxetine - to start at 30 mg Q HS for at least a week, then 30 mg BID (2) Benign essential hypertension: Code(s): I10 - Essential (primary) hypertension Plan: Reinforced low sodium diet - goal is systolic BP of at least 130 to 140 mm or less Continue Lisinopril-HCT 20-12.5 mg QD - Rx refilled (3) Pure hypercholesterolemia: Code(s): E78.00 - Pure hypercholesterolemia, unspecified Plan: Reinforced low cholesterol diet Continue Pravastatin 20 mg QD Has not had any follow up labs done in a while now (labs were last done in August 2020) - will again send him for some labs PIERRE for follow up (previous lab orders are updated and printed out and handed to patient) (4) Atrial fibrillation: Code(s): I48.91 - Unspecified atrial fibrillation Qualifiers: Atrial fibrillation type: unspecified Qualified Code(s): I48.91 - Unspecified atrial fibrillation Plan: Was found to be in A Fib when he presented to the ER in August 2020 with increasing fatigue but patient left AMA when he was recommended admission Has since been referred to [facility] and states that he has been seeing them since Underwent pharmacologic stress testing in 03/2021 - tests came out normal Continue Clopidogrel 75 mg QD and Aspirin 81 mg QD Follow up with cardiology as scheduled (5) Peripheral artery disease: Code(s): I73.9 - Peripheral vascular disease, unspecified Plan: S/P femoropopliteal bypass graft of the RLE (R supl Fem Angioplast & L Common Iliac Stent) back in 2002 He is advised that this is the main reason he is on dual antiplatelet therapy and should go back on his low dose Aspirin PIERRE Continue BOTH Aspirin 81 mg QD and Clopidogrel 75 mg QD He also has not seen vascular surgery in a while now and is advised that he should see vascular surgery for regular follow ups - states that he will call for referral when he feels ready but not right now as he is still dealing with his increased low back pain (6) Insomnia: Code(s): G47.00 - Insomnia, unspecified Qualifiers: Insomnia type: unspecified Qualified Code(s): G47.00 - Insomnia, unspecified Plan: Sleep hygiene reinforced He was previously started on a trial of Trazodone 100 mg Q HS but patient states that he could not tolerate the medication (felt dizzy and has a hung over feeling; also felt his heart racing often) and he stopped taking the medication a while back he will be started on Duloxetine today, will hold off on starting him on any other med at this time (7) Anxiety: Code(s): F41.9 - Anxiety disorder, unspecified Plan: Was on Clonidine 0.1 mg TID before but patient has since quit taking them - states that he is doing okay wiithout his Clonidine (8) Depression: Code(s): F32.9 - Major depressive disorder, single episode, unspecified Qualifiers: Depression Type: major depressive disorder Major depression recurrence: recurrent Active/Remission status: currently active Major depression episode severity: unspecified Qualified Code(s): F33.9 - Major depressive disorder, recurrent, unspecified Plan: Was also on Mirtazapine 15 mg Q HS but patient self-discontinued his Rx a while back and does not want to have this refilled Advised that Duloxetine may help with both his chronic pain and his mood Plan Follow up in 6 months Medications: New duloxetine 30 mg PO BID 30 days 60 caps 3RF Changed From aspirin (Adult Low Dose Aspirin) 81 mg PO DAILY To aspirin (Adult Low Dose Aspirin) 81 mg PO DAILY 90 days 90 tabs 3RF Refilled pravastatin 20 mg PO DAILY 90 days 90 tabs 1RF clopidogrel 75 mg PO DAILY 90 days 90 tabs 1RF lisinopril-hydrochlorothiazide 20-12.5 mg 1 tab PO DAILY 90 days 90 tabs 1RF Coding Level of Care Code Est Pt Level 4 (20938) Diagnoses Failed back syndrome M96.1 Benign essential hypertension I10 Pure hypercholesterolemia E78.00 Atrial fibrillation, unspecified type I48.91 Atrial fibrillation type: unspecified Peripheral artery disease I73.9 Insomnia, unspecified type G47.00 Insomnia type: unspecified Anxiety F41.9 Episode of recurrent major depressive disorder, unspecified depression episode severity F33.9 Depression Type: major depressive disorder Major depression recurrence: recurrent Active/Remission status: currently active Major depression episode severity: unspecified
[2022-12-25 11:08] VITALS: BP 132/72; PULSE 65; O2SAT 97; BMI 24.3
== END 2022-12-25 14:17 | disposition home or self-care (01) ==
PROVIDERS: Visit Provider Internal Medicine
DX: I48.91 Unspecified atrial fibrillation (principal); I73.9 Peripheral vascular disease, unspecified; F33.9 Major depressive disorder, recurrent, unspecified; M96.1 Postlaminectomy syndrome, not elsewhere classified; I10 Essential (primary) hypertension; E78.00 Pure hypercholesterolemia, unspecified; G47.00 Insomnia, unspecified; F41.9 Anxiety disorder, unspecified
CPT/HCPCS: 99214

== ENCOUNTER 2023-06-25 10:44 | Outpatient (AMB) | payer MEDICARE, MEDICAID, SELFPAY ==
[2023-06-25 10:44] VITALS: BP 136/68; PULSE 93; O2SAT 96; BMI 24.8
--- NOTE | 2023-06-25 10:44 | A.OFFPC_ITS ---
Vital Signs 06/25/23 10:44 Height 5 ft 3 in Weight 140 lb 0.2 oz BMI 24.8 BP 136/68 Blood Pressure Location Lt brachial Position Sitting Pulse 93 Pulse Source Pulse Oximeter Pulse Oximetry (%) 96 Oxygen Delivery Method Room Air Intake Visit Reasons: hyperlipidemia, PAD, chronic low back pain Intake Note: Patient is here to follow up on hyperlipidemia, PAD, chronic lower back pain. Tester Regulator Required: No Allergies trazodone Adverse Reaction (Uncoded 06/25/23 11:20) dizziness, heart racing Medication List - Last Reconciled 06/25/23 by Henrry Barnard MD aspirin (Adult Low Dose Aspirin) 81 mg PO DAILY 90 days clopidogrel 75 mg PO DAILY 90 days lisinopril-hydrochlorothiazide 20-12.5 mg 1 tab PO DAILY 90 days pravastatin 20 mg PO DAILY 90 days Tobacco use date assessed: 06/25/23 Fall risk assessment: No Falls in past year Last assessed Fall Risk: 06/25/23 Dental Screening Dental Screen Date: 06/25/23 Did you have a dental visit in the last 12 months?: No Did you have a dental problem in the last 6 months where you did not have access to dental care?: No HPI hyperlipidemia, PAD, chronic low back pain HPI Details Patient comes in today for his follow up visit Recalls that he fell about a month ago and hurt his right small (5th) finger in the process States that he went to a local walk-in clinic shortly afterwards for increased pain and swelling of his right 5th finger and had x-rays done at the clinic after which he was reportedly advised that he has a fracture on his finger and it was subsequently splinted States that it has been about a month now and his finger still looks swollen; states that his finger still hurts somewhat but he can bend it to some extent He still tries to keep his finger splinted as much as possible throughout the day Also states that he continues to experience chronic low back pain and still has trouble sleeping at night, primarily due to his low back pain He was started on a trial of Duloxetine a few months ago, both to help with his chronic pain and his mood, but states that he stopped taking it after a week or so as he did not like the way the medication made him feel Would like to just get something he can take on an as-needed basis - recalls being prescribed Carisoprodol before and is wondering if he can get an Rx for some of this He has also been reportedly experiencing occasional burning sensation and tingling in his legs and feet lately, especially at night, and is wondering if these mean that he is starting to get some neuropathy It also appears that he has not seen cardiology ([facility]) for follow up of his cardiac issues since late 2021 - thinks that the doctor(s) who saw him before moved down to the [facility] and states that he was never advised of any follow up appointment since his last visit with them He denies any headaches or dizziness Denies any chest pains, no SOB No nausea/vomiting, no abdominal pain No change in bowel habits noted States that he had his follow up labs done at [facility] back in March 2023 - to discuss his results [facility] Medical History Peripheral artery disease Insomnia Depression Anxiety Impaired fasting glucose Pure hypercholesterolemia Benign essential hypertension Postlaminectomy syndrome Degenerative lumbar spinal stenosis Femoral-tibial bypass graft occlusion, right Asymptomatic left ventricular systolic dysfunction Renal cyst PVD (peripheral vascular disease) Hyperlipidemia Hypertension Cervical radiculopathy Failed back syndrome Surgical History History of lumbar surgery History of femoropopliteal bypass S/P laminectomy Family History Father Myocardial infarction Mother Alzheimers disease Social History Household Members Other:: Alone Housing: House Alcohol intake: never Patient Tobacco Use Status: Former Tobacco user Tobacco use type: Cigarette e-Cigarette/Vaping Use: Never Used Second Hand Smoke Exposure: Yes service: No Current occupational status: retired Current occupation: Disabled approx 10 years - did various jobs/ right hand dominant Cognitive needs: Yes Hearing needs: No Vision needs: No Questionnaire PHQ-9 Over the last 2 weeks, how often have you been bothered by any of the following problems? 1. Little interest or pleasure in doing things: not at all 2. Feeling down, depressed, or hopeless: not at all 3. Trouble falling or staying asleep, or sleeping too much: not at all 4. Feeling tired or having little energy: not at all 5. Poor appetite or overeating: not at all 6. Feeling bad about yourself - or that you are a failure or have let yourself or your family down: not at all 7. Trouble concentrating on things, such as reading the newspaper or watching television: not at all 8. Moving or speaking so slowly that other people could have noticed. Or the opposite - being so fidgety or restless that you have been moving around a lot more than usual: not at all 9. Thoughts that you would be better off or of hurting yourself in some way: not at all Total score: 0 Depression Screening Interpretation: Negative Depression Screening Done: Yes 32020 - PHQ-9 Billing: Yes Source: Developed by Drs. Jesus Soriano, Sandy Carson, Elvin Leone and colleagues, with an educational oracio from [employer]. Thrive Questionnaire Date Thrive assessed: 06/25/23 I am a: Patient What is your living situation today?: I have a steady place to live Within the past 12 months, did the food you bought not last and you didn't have the money to get more?: Never true Within the past 12 months, did you worry whether your food would run out before you got money to buy more?: Never true Do you have trouble paying for medicines?: No Do you have trouble getting transportation to medical appointments?: No Do you have trouble paying your heating and electricity bill?: No Do you have trouble taking care of your child, family member or friend?: No Do you have trouble with day-to-day activities such as bathing, preparing meals, shopping, managing finances, etc.?: No Are you currently unemployed and looking for a job?: No Are you interested in more education?: No Please select the resources that you would like help with: None Currently or been in a relationship where the following occur: no concerns reported THRIVE Score: 0 AUDIT C Alcohol Use Questionnaire (AUDIT-C) 1. How often do you have a drink containing alcohol?: Never 3. How often do you have six or more drinks on one occasion?: Never Total Score: 0 Score Reviewed/Action Taken: Yes NAOMI-7 AMB Questionnaire NAOMI-7 Date NAOMI - 7 assessed: 06/25/23 Source: Developed by Drs. Jesus Soriano, Sandy Carson, Elvin Leone and colleagues, with an educational oracio from [employer]. Review of Systems Const Reports difficulty sleeping, Reports fatigue, Denies fever(s) and Denies headache(s) ENT Denies dysphagia, Denies dizziness, Denies otalgia, Denies headache(s), Reports neck pain (chronic), Denies odynophagia and Denies sore throat Card Denies chest pain, Denies palpitations and Denies dyspnea Resp Denies cough and Denies dyspnea GI Denies abdominal pain, Denies constipation, Denies dysphagia, Denies heartburn, Denies diarrhea, Denies nausea, Denies odynophagia and Denies vomiting Denies dysuria, Denies nocturia and Denies urinary frequency Musc Details: recurrent contracture and stiffness of the left middle finger; increased swelling and some pain over the right 5th finger Reports as per HPI, Reports back pain (chronic - increased), Reports neck pain (chronic) and Reports stiffness (of both hands) Skin/Breast Denies rash Neuro Denies dizziness and Denies headache(s) Psych Reports anxiety Endo Reports fatigue and Denies palpitations Physical exam (Primary Care) Vital Signs: Last Vital Signs Pulse 93 06/25/23 10:44 BP 136/68 06/25/23 10:44 Pulse Ox 96 06/25/23 10:44 Oxygen Delivery Method Room Air 06/25/23 10:44 BMI result Body Mass Index 24.8 Tobacco/Smoking Status: Tobacco use Status Tobacco use date assessed 06/25/23 06/25/23 10:46 Patient Tobacco Use Status Former Tobacco user 06/25/23 10:46 Tobacco use type Cigarette 06/25/23 10:46 e-Cigarette/Vaping Use Never Used 06/25/23 10:46 PHQ-9: PHQ-9 Score PHQ-9: Total score 0 06/25/23 11:28 Depression Screening Interpretation: Negative Thrive Assessment: Date of Thrive Assessment Date Thrive assessed 06/25/23 06/25/23 10:46 Currently or been in a relationship where the following occur: no concerns reported Const General: no acute distress and alert HENMT Throat: Yes posterior oropharynx normal and Yes tonsils normal (no TP congestion) Neck Neck: Yes no lymphadenopathy and Yes tender Thyroid: Thyroid normal Resp Auscultation: clear to auscultation bilaterally, no rales and no wheezes Cardio Rate: regular rate Rhythm: regular rhythm (but (+) occasional ectopic beats) Heart sounds: no murmurs GI Palpation (GI): Soft to palpation and nontender Auscultation: normal bowel sounds Back/Spine/Pelvis Cervical Spine: Cervical spine tenderness Thoracic/Lumbar Spine: lumbar spinal tenderness Skin Rashes: no rashes Extrem Other: (+) small non-tender nodules noted on exam of the left hand, with slightly prominent IP joints on both hands, especially the MIP General: Yes no clubbing, cyanosis or edema Right upper extremity: Extremity exam: right hand Details: tenderness Location: of the 5th digit Location: involving the entire digit and swelling Location: of the 5th digit Location: involving the entire digit Results AMB Hemoglobin A1c AMB Hemoglobin A1c 5.2 % Last Edit by RAVI Salomon on 06/25/23 11:37 Assessment and Plan Assessment & Plan (1) Failed back syndrome: Code(s): M96.1 - Postlaminectomy syndrome, not elsewhere classified Plan: Patient was discharged from pain management by Dr. Mo a couple of years ago due to a failed UDS and he still feels, to this day, that he was inappropriately discharged and was never given a chance to explain his side of the story He was reminded that he was suspended and not discharged, and that he can actually go back with them again after 05/17/2021 but he chose NOT to do so We have offered to refer him to other pain management practices in the area in the past but have advised him that most of these offer only injection treatments, which patient is strongly opposed to as he is insistent that only opioid Rxs have helped him in the past He previously agreed to try going to the new Spine Center here at [facility] to see what they can offer him for his chronic low back pain although he remains very hesitant about getting any surgical procedures done - was referred back in June 2022 but it looks like no appointment was ever scheduled for him and he has since changed his mind and does not wish to pursue neurosurgery referral at this time Will try to start him back on Carisoprodol 350 mg - he was previously taking this TID PRN but will start him back on Q HS PRN dosing for now Have advised him also that insurance will likely not cover this as they often prefer Tizanidine as 1st line We also started him on a trial of Duloxetine 30 mg BID previously but states that he stopped taking it after a week or so as he supposedly did not like the way the medication made him feel Have again offered him the option of Gabapentin or Lyrica - states that he does not like to be taking something regularly and prefers something he can take on an as-needed basis (2) Benign essential hypertension: Code(s): I10 - Essential (primary) hypertension Plan: Reinforced low sodium diet - goal is systolic BP of at least 130 to 140 mm or less Continue Lisinopril-HCT 20-12.5 mg QD (3) Pure hypercholesterolemia: Code(s): E78.00 - Pure hypercholesterolemia, unspecified Plan: Results of his labs done at [facility] in March 2023 reviewed and discussed with patient Reinforced low cholesterol diet Continue Pravastatin 20 mg QD Will have him recheck his labs and fasting lipids in 6 months for follow up (4) Atrial fibrillation: Code(s): I48.91 - Unspecified atrial fibrillation Qualifiers: Atrial fibrillation type: unspecified Qualified Code(s): I48.91 - Unspecified atrial fibrillation Plan: Was found to be in A Fib when he presented to the ER in August 2020 with increasing fatigue but patient left AMA when he was recommended admission He was then referred to [facility] Cardiology and underwent pharmacologic stress testing in 03/2021 - tests reportedly all came out normal Continue Clopidogrel 75 mg QD and Aspirin 81 mg QD It looks like he has not been seen by [facility] Cardiology since his appt with them in late 2021 - patient was under the impression that 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 to the [facility] He now agrees to come here to [facility] instead for his follow up - referral to cardiology done (5) Peripheral artery disease: Code(s): I73.9 - Peripheral vascular disease, unspecified Plan: S/P femoropopliteal bypass graft of the RLE (R supl Fem Angioplast & L Common Iliac Stent) back in 2002 He is advised that this is the main reason he is on dual antiplatelet therapy Continue BOTH Aspirin 81 mg QD and Clopidogrel 75 mg QD He also has not seen vascular surgery in a while now and has been advised that he should see vascular surgery for regular follow ups but patient states that he will call for referral when he feels ready - has not done so yet (6) Impaired fasting glucose: Code(s): R73.01 - Impaired fasting glucose Plan: His FBS was slightly elevated on his labs back in March 2023 but in-office HgbA1c done today is normal at 5.4% Reinforced low calorie/low carb diet (7) Swelling of right little finger: Code(s): M79.89 - Other specified soft tissue disorders Plan: (+) pain and swelling of his right 5th finger since he fell on it about a month ago He was reportedly seen at a local walk-in clinic and had x-rays done back then and he was advised that he has a fracture on his finger, which has since been splinted As patient apparently still has significant swelling and some pain on his finger a month now after his injury, will send him for repeat x-rays of the right 5th finger for further evaluation (8) Insomnia: Code(s): G47.00 - Insomnia, unspecified Qualifiers: Insomnia type: unspecified Qualified Code(s): G47.00 - Insomnia, unspecified Plan: Sleep hygiene reinforced He was previously started on a trial of Trazodone 100 mg Q HS but patient states that he could not tolerate the medication (felt dizzy and had a hung-over feeling; recalls that he also felt his heart racing often then after taking the medication) and he stopped taking Trazodone a while back (9) Anxiety: Code(s): F41.9 - Anxiety disorder, unspecified Plan: Was on Clonidine 0.1 mg TID before but patient has since quit taking them - states that he is doing okay wiithout his Clonidine (10) Depression: Code(s): F32.9 - Major depressive disorder, single episode, unspecified Qualifiers: Depression Type: major depressive disorder Major depression recurrence: recurrent Active/Remission status: currently active Major depression episode severity: unspecified Qualified Code(s): F33.9 - Major depressive disorder, recurrent, unspecified Plan: Was also on Mirtazapine 15 mg Q HS but patient self-discontinued his Rx a while back and does not want to have this refilled He was also tried on Duloxetine more recently but he also self-discontinued the medication as he supposedly did not like the way Duloxetine made him feel - felt blah on the Rx Plan Follow up in 6 months Orders: Orders TSH reflex Free T4 6 Months E78.00 - Pure hypercholesterolemia, unspecified UA CC w/rflx Micro + Cult 6 Months R30.0 - Dysuria AMB Hemoglobin A1c Today Z13.9 - Encounter for screening, unspecified XR finger RT min 2V Today M79.644 - Pain in right finger(s), M79.89 - Other specified soft tissue disorders Complete Blood Count Auto Diff 6 Months D64.9 - Anemia, unspecified Comprehensive Bow. Panel Fast 6 Months E78.00 - Pure hypercholesterolemia, unspecified Lipid Panel 6 Months E78.00 - Pure hypercholesterolemia, unspecified Vitamin D 25-OH Total 6 Months E55.9 - Vitamin D deficiency, unspecified Referrals Cardiology Referral I48.91 - Unspecified atrial fibrillation Medications: New carisoprodol 350 mg PO BEDTIME 30 days PRN 30 tabs 0RF muscle pain/low back pain Coding Level of Care Code Est Pt Level 4 (57005) Diagnoses Failed back syndrome M96.1 Benign essential hypertension I10 Pure hypercholesterolemia E78.00 Atrial fibrillation, unspecified type I48.91 Atrial fibrillation type: unspecified Peripheral artery disease I73.9 Impaired fasting glucose R73.01 Swelling of right little finger M79.89 Insomnia, unspecified type G47.00 Insomnia type: unspecified Anxiety F41.9 Episode of recurrent major depressive disorder, unspecified depression episode severity F33.9 Depression Type: major depressive disorder Major depression recurrence: recurrent Active/Remission status: currently active Major depression episode severity: unspecified
== END 2023-06-25 11:41 | disposition home or self-care (01) ==
PROVIDERS: PCP Internal Medicine; Visit Provider Internal Medicine
DX: M96.1 Postlaminectomy syndrome, not elsewhere classified (principal); I48.91 Unspecified atrial fibrillation; I73.9 Peripheral vascular disease, unspecified; I10 Essential (primary) hypertension; R73.01 Impaired fasting glucose; M79.89 Other specified soft tissue disorders; G47.00 Insomnia, unspecified; F41.9 Anxiety disorder, unspecified
CPT/HCPCS: 83036; 99214

== ENCOUNTER 2024-04-13 16:02 | Outpatient (AMB) | payer MEDICARE, MEDICAID, SELFPAY ==
[2024-04-13 16:09] VITALS: BP 122/60; PULSE 83; O2SAT 96; BMI 27.8
--- NOTE | 2024-04-13 16:09 | MHC.PC.OV ---
Vital Signs 04/13/24 16:09 Height 5 ft 3 in Weight 157 lb 2 oz BMI 27.8 BP 122/60 Blood Pressure Location Lt brachial Position Sitting Pulse 83 Pulse Source Pulse Oximeter Pulse Oximetry (%) 96 Oxygen Delivery Method Room Air Intake Visit Reasons: AF, hyperlipidemia, OA Drop Wire Aligner Required: No Accompanied by: Self / Same As Patient Allergies trazodone Adverse Reaction (Uncoded 04/13/24 16:50) dizziness, heart racing Medication List - Last Reconciled 04/13/24 by Henrry Barnard MD aspirin (Adult Low Dose Aspirin) 81 mg PO DAILY 90 days carisoprodol 350 mg PO BEDTIME PRN 30 days clopidogrel 75 mg PO DAILY 90 days lisinopril-hydrochlorothiazide 20-12.5 mg 1 tab PO DAILY 90 days pravastatin 20 mg PO DAILY 90 days Tobacco use date assessed: 04/13/24 Fall risk assessment: No Falls in past year Last assessed Fall Risk: 04/13/24 Dental Screening Dental Screen Date: 04/13/24 Did you have a dental visit in the last 12 months?: Yes Did you have a dental problem in the last 6 months where you did not have access to dental care?: No Was dental information given to patient?: Patient has dentist HPI AF, hyperlipidemia, OA HPI Details Patient comes in today for his follow-up visit States that he has been sick for the past 3 weeks Relates that his symptoms started out with a fever followed by a head cold States that he has had increased cough and congestion for past few weeks and is now just starting to feel better States that he coughs up thick whitish phlegm at times and his cough is usually worse at night but feels that his cough is now starting to gradually subside He denies any headaches or dizziness; denies any sore throat and states that he has not had any fever in over 2 weeks now Denies any exertional chest pains, no increased shortness of breath No nausea/vomiting, no abdominal pain No change in bowel habits noted He continues to experience increased pain over his lower back, which he has had for years now, but feels that his low back pain has been getting worse recently, with pain sometimes radiating down his right leg He recalls being prescribed some Percocets by Dr. Mo for his pain years ago but he has not taken any opioid Rx in a few years now He also recalls being advised by Dr. Mo that he has a cyst in one of his kidneys many years ago but was supposedly told that it was nothing that he needs to worry about Will if he needs to have this checked out again or not States that he has not noticed any blood or any change in his urine lately and he denies any pain over his flanks [facility] Medical History (Updated 04/14/24 @ 05:28 by Henrry Barnard MD) Overweight (BMI 25.0-29.9) Peripheral artery disease Insomnia Depression Anxiety Impaired fasting glucose Pure hypercholesterolemia Benign essential hypertension Postlaminectomy syndrome Degenerative lumbar spinal stenosis Femoral-tibial bypass graft occlusion, right Asymptomatic left ventricular systolic dysfunction Renal cyst PVD (peripheral vascular disease) Hyperlipidemia Hypertension Cervical radiculopathy Failed back syndrome Surgical History History of lumbar surgery History of femoropopliteal bypass S/P laminectomy Family History Father Myocardial infarction Mother Alzheimers disease Social History Household Members Other:: Alone Housing: House Alcohol intake: never Patient Tobacco Use Status: Former Tobacco user Tobacco use type: Cigarette e-Cigarette/Vaping Use: Never Used Second Hand Smoke Exposure: Yes service: No Current occupational status: retired Current occupation: Disabled approx 10 years - did various jobs/ right hand dominant Cognitive needs: Yes Hearing needs: No Vision needs: No Questionnaire PHQ-9 Over the last 2 weeks, how often have you been bothered by any of the following problems? 1. Little interest or pleasure in doing things: not at all 2. Feeling down, depressed, or hopeless: not at all 3. Trouble falling or staying asleep, or sleeping too much: not at all 4. Feeling tired or having little energy: not at all 5. Poor appetite or overeating: not at all 6. Feeling bad about yourself - or that you are a failure or have let yourself or your family down: not at all 7. Trouble concentrating on things, such as reading the newspaper or watching television: not at all 8. Moving or speaking so slowly that other people could have noticed. Or the opposite - being so fidgety or restless that you have been moving around a lot more than usual: not at all 9. Thoughts that you would be better off or of hurting yourself in some way: not at all Total score: 0 Depression Screening Interpretation: Negative Depression Screening Done: Yes 00429 - PHQ-9 Billing: Yes Source: Developed by Drs. Jesus Soriano, Sandy Carson, Elvin Leone and colleagues, with an educational oracio from [employer]. Thrive Questionnaire Date Thrive assessed: 04/13/24 I am a: Patient What is your living situation today?: I have a steady place to live Within the past 12 months, did the food you bought not last and you didn't have the money to get more?: Never true Within the past 12 months, did you worry whether your food would run out before you got money to buy more?: Never true Do you have trouble paying for medicines?: No Do you have trouble getting transportation to medical appointments?: No Do you have trouble paying your heating and electricity bill?: No Do you have trouble taking care of your child, family member or friend?: No Do you have trouble with day-to-day activities such as bathing, preparing meals, shopping, managing finances, etc.?: No Are you currently unemployed and looking for a job?: No Are you interested in more education?: No Please select the resources that you would like help with: None Currently or been in a relationship where the following occur: No concerns reported THRIVE Score: 0 AUDIT C Alcohol Use Questionnaire (AUDIT-C) 1. How often do you have a drink containing alcohol?: Never 3. How often do you have six or more drinks on one occasion?: Never Total Score: 0 Score Reviewed/Action Taken: Yes NAOMI-7 AMB Questionnaire NAOMI-7 Date NAOMI - 7 assessed: 04/13/24 Feeling nervous, anxious, or on edge: 0 = Not at all Not being able to stop or control worryin = Not at all Worrying too much about different things: 0 = Not at all Trouble relaxin = Not at all Being so restless that it is hard to sit still: 0 = Not at all Becoming easily annoyed or irritable: 0 = Not at all Feeling afraid as if something awful might happen: 0 = Not at all Total NAOMI-7 score (0-4 normal; 5-9 mild; 10-14 moderate; 15-21 severe): 0 Source: Developed by Drs. Jesus Soriano, Sandy Carson, Elvin Leone and colleagues, with an educational oracio from [employer]. Review of Systems Const Denies chills, Reports difficulty sleeping, Reports fatigue, Denies fever(s) and Denies headache(s) ENT Denies dysphagia, Denies dizziness, Denies otalgia, Denies headache(s), Reports neck pain (chronic), Denies odynophagia and Denies sore throat Card Denies chest pain, Denies palpitations and Denies dyspnea Resp Denies chest congestion, Reports cough (occasional), Denies dyspnea and Denies wheezing GI Denies abdominal pain, Denies constipation, Denies dysphagia, Denies heartburn, Denies diarrhea, Denies nausea, Denies odynophagia and Denies vomiting Denies difficulty urinating, Denies dysuria, Denies nocturia and Denies urinary frequency Musc Reports back pain (chronic - increasing lately), Reports neck pain (chronic) and Reports stiffness (of both hands/fingers) Skin/Breast Denies rash Neuro Denies dizziness and Denies headache(s) Psych Reports anxiety Endo Reports fatigue and Denies palpitations Aller/Immun Denies wheezing Physical exam (Primary Care) Vital Signs: Last Vital Signs Pulse 83 04/13/24 16:09 BP 122/60 04/13/24 16:09 Pulse Ox 96 04/13/24 16:09 Oxygen Delivery Method Room Air 04/13/24 16:09 BMI result Body Mass Index 27.8 Tobacco/Smoking Status: Tobacco use Status Tobacco use date assessed 04/13/24 04/13/24 16:10 Patient Tobacco Use Status Former Tobacco user 04/13/24 16:10 Tobacco use type Cigarette 04/13/24 16:10 e-Cigarette/Vaping Use Never Used 04/13/24 16:10 PHQ-9: PHQ-9 Score PHQ-9: Total score 0 04/13/24 16:59 Depression Screening Interpretation: Negative Thrive Assessment: Date of Thrive Assessment Date Thrive assessed 04/13/24 04/13/24 16:10 Currently or been in a relationship where the following occur: No concerns reported Const General: no acute distress and alert HENMT Ears: TM's normal bilaterally and EAC's normal Throat: Yes posterior oropharynx normal and Yes tonsils normal (no TP congestion) Neck Neck: No lymphadenopathy and Yes tender Thyroid: Thyroid normal Resp Auscultation: clear to auscultation bilaterally, no rales, rhonchi (occasional) and no wheezes Cardio Rate: regular rate Rhythm: abnormal rhythm with ectopic beats (occasionally) Heart sounds: no murmurs GI Palpation (GI): Soft to palpation and nontender Auscultation: normal bowel sounds Back/Spine/Pelvis Cervical Spine: Cervical spine tenderness Thoracic/Lumbar Spine: lumbar spinal tenderness Skin Rashes: no rashes Extrem Other: (+) small non-tender nodules noted on exam of the left hand, with slightly prominent IP joints on both hands, especially the MIP General: Yes no clubbing, cyanosis or edema Coding Level of Care Code Est Pt Level 4 (56368) Diagnoses Failed back syndrome M96.1 Benign essential hypertension I10 Pure hypercholesterolemia E78.00 Atrial fibrillation, unspecified type I48.91 Atrial fibrillation type: unspecified Peripheral artery disease I73.9 Impaired fasting glucose R73.01 Renal cyst N28.1 Insomnia, unspecified type G47.00 Insomnia type: unspecified Anxiety F41.9 Episode of recurrent major depressive disorder, unspecified depression episode severity F33.9 Depression Type: major depressive disorder Major depression recurrence: recurrent Active/Remission status: currently active Major depression episode severity: unspecified Overweight (BMI 25.0-29.9) E66.3 Additional Codes PHQ-9 - 83449 - PHQ-9 Billing: Yes ([id number]) Assessment & Plan Assessment & Plan (1) Failed back syndrome: Code(s): M96.1 - Postlaminectomy syndrome, not elsewhere classified Category: Medical Plan: Patient was discharged from pain management by Dr. Mo a few years ago due to a failed UDS and he still feels, to this day, that he was inappropriately discharged and was never given a chance to explain his side of the story He was reminded that he was suspended and not discharged, and that he can actually go back to pain management again after 05/17/2021 but he chose NOT to do so We have offered to refer him to other pain management practices in the area in the past but have advised him that most of these offer only injection treatments, which patient is strongly opposed to as he is insistent that only opioid Rxs have helped him in the past He previously agreed to try going to the new Spine [facility] [place] at [facility] [place] see what they can offer him for his chronic low back pain although he remains very hesitant about getting any surgical procedures done - was referred back in June 2022 but it looks like no appointment was ever scheduled for him and he has since changed his mind and does not wish to pursue neurosurgery referral at this time We started him back on Carisoprodol 350 mg last year - he was previously taking this TID PRN but we started him back on just Q HS PRN dosing We also started him on a trial of Duloxetine 30 mg BID previously but states that he stopped taking it after a week or so as he supposedly did not like the way the medication made him feel Have offered him the option of Gabapentin or Lyrica but he states that he does not like to be taking something regularly and prefers something he can take on an as-needed basis As he has been complaining of increasing low back pain lately, will send him for updated lumbar spine x-rays for further evaluation (2) Benign essential hypertension: Code(s): I10 - Essential (primary) hypertension Category: Medical Plan: Reinforced low sodium diet - goal is systolic BP of at least 130 to 140 mm or less Continue Lisinopril-HCT 20-12.5 mg QD (3) Pure hypercholesterolemia: Code(s): E78.00 - Pure hypercholesterolemia, unspecified Category: Medical Plan: Reinforced low cholesterol diet Continue Pravastatin 20 mg QD As he has not had any follow-up labs done in over a year now, we will send him for fasting labs PIERRE (4) Atrial fibrillation: Code(s): I48.91 - Unspecified atrial fibrillation Category: Medical Qualifiers: Atrial fibrillation type: unspecified Qualified Code(s): I48.91 - Unspecified atrial fibrillation Plan: Patient was found to be in A Fib when he presented to the ER in August 2020 with increasing fatigue but patient left AMA when admission was recommended He was then referred to [facility] and he underwent pharmacologic stress testing in 03/2021 - tests reportedly all came out normal Continue Clopidogrel 75 mg QD and Aspirin 81 mg QD He has not seen cardiology for follow up since his appointment with [facility] in late 2021 - he was supposedly under the impression that his speeder hand has since moved south to the [place] area and he does not wish to go down there He agreed to see [facility] instead for his follow up last year and a referral was made out to cardiology here - it appears that he was scheduled to be seen sometime in September 2023 but it looks like patient did not show up for his appointment He presently declined any new referral for now - states that he is feeling okay with no acute symptoms Will at least consider sending him for some follow-up echocardiogram later this year or will try to convince him to see Cardiology again at his next follow-up visit (5) Peripheral artery disease: Code(s): I73.9 - Peripheral vascular disease, unspecified Category: Medical Plan: S/P femoropopliteal bypass graft of the RLE (R supl Fem Angioplast & L Common Iliac Stent) back in 2002 This is likely the main reason he is on dual antiplatelet therapy Continue BOTH Aspirin 81 mg QD and Clopidogrel 75 mg QD He also has not seen vascular surgery in a while and has been advised that he should see vascular surgery for regular follow ups but patient states that he will call for referral when he feels ready - he has not done so yet so far (6) Impaired fasting glucose: Code(s): R73.01 - Impaired fasting glucose Category: Medical Plan: His FBS was slightly elevated on his labs back in March 2023 but in-office HgbA1c was normal at 5.4% when checked last year Reinforced low calorie/low carb diet Will recheck his fasting blood sugar again for follow-up (7) Renal cyst: Code(s): N28.1 - Cyst of kidney, acquired Category: Medical Plan: Recalls being advised by previous MD years ago that he has cysts in his kidneys but he was reportedly never sent for any additional tests Per request, will send patient for renal US for further evaluation (8) Insomnia: Code(s): G47.00 - Insomnia, unspecified Category: Medical Qualifiers: Insomnia type: unspecified Qualified Code(s): G47.00 - Insomnia, unspecified Plan: Sleep hygiene reinforced He was previously started on a trial of Trazodone 100 mg Q HS but patient states that he could not tolerate the medication (felt dizzy and had a hung-over feeling; recalls that he also felt his heart racing then after taking the medication) and he stopped taking Trazodone a while back (9) Anxiety: Code(s): F41.9 - Anxiety disorder, unspecified Category: Medical Plan: He was on Clonidine 0.1 mg TID before but patient has since quit taking them - states that he is doing okay without any Rx (10) Depression: Code(s): F32.9 - Major depressive disorder, single episode, unspecified Category: Medical Qualifiers: Depression Type: major depressive disorder Major depression recurrence: recurrent Active/Remission status: currently active Major depression episode severity: unspecified Qualified Code(s): F33.9 - Major depressive disorder, recurrent, unspecified Plan: He was on Mirtazapine 15 mg Q HS but patient self-discontinued his Rx a while back and does not want to go back on the Rx He was also tried on Duloxetine more recently but he also self-discontinued the medication as he supposedly did not like the way Duloxetine made him feel - felt blah on the Rx (11) Overweight (BMI 25.0-29.9): Code(s): E66.3 - Overweight Category: Medical Plan: Reinforced diet; exercise and weight loss are not realistic given his increasing low back pain and joint pains Plan Follow up in 4 months Orders: Orders US renal BI 04/13/24 N28.1 - Cyst of kidney, acquired Complete Blood Count Auto Diff 04/13/24 D64.9 - Anemia, unspecified Comprehensive [place]. Panel Fast 04/13/24 E78.00 - Pure hypercholesterolemia, unspecified Vitamin D 25-OH Total 04/13/24 E55.9 - Vitamin D deficiency, unspecified Hemoglobin A1c 04/13/24 R73.01 - Impaired fasting glucose XR lumbar spine 2-3V 04/13/24 M54.50 - Low back pain, unspecified Lipid Panel 04/13/24 E78.00 - Pure hypercholesterolemia, unspecified TSH reflex Free T4 04/13/24 E78.00 - Pure hypercholesterolemia, unspecified UA CC w/rflx Micro + Cult 04/13/24 R30.0 - Dysuria
== END 2024-04-13 17:09 | disposition home or self-care (01) ==
PROVIDERS: PCP Internal Medicine; Visit Provider Internal Medicine
DX: I10 Essential (primary) hypertension (principal); I48.91 Unspecified atrial fibrillation; I73.9 Peripheral vascular disease, unspecified; F33.9 Major depressive disorder, recurrent, unspecified; M96.1 Postlaminectomy syndrome, not elsewhere classified; E78.00 Pure hypercholesterolemia, unspecified; R73.01 Impaired fasting glucose; N28.1 Cyst of kidney, acquired; G47.00 Insomnia, unspecified; F41.9 Anxiety disorder, unspecified; E66.3 Overweight

== ENCOUNTER → 2024-04-13 16:02 | Outpatient (BNVA) | payer MEDICARE, MEDICAID, SELFPAY | PROVIDERS: PCP Internal Medicine; Visit Provider Internal Medicine | DX: M96.1 Postlaminectomy syndrome, not elsewhere classified (principal); I10 Essential (primary) hypertension; E78.00 Pure hypercholesterolemia, unspecified; I48.91 Unspecified atrial fibrillation; I73.9 Peripheral vascular disease, unspecified; R73.01 Impaired fasting glucose; N28.1 Cyst of kidney, acquired; G47.00 Insomnia, unspecified; F41.9 Anxiety disorder, unspecified; F33.9 Major depressive disorder, recurrent, unspecified; E66.3 Overweight | CPT/HCPCS: 96127; 99212 ==

== ENCOUNTER 2024-05-14 15:29 | Outpatient (REF) | payer MEDICARE, MEDICAID, SELFPAY ==
--- NOTE | ~2024-05-14 | US_ITS ---
EXAMINATION: US KIDNEY BILATERAL HISTORY: N28.1 - Cyst of kidney, acquired TECHNIQUE: Real-time grayscale ultrasound imaging of the kidneys was performed and images were reviewed. COMPARISON: There are no prior studies for comparison. FINDINGS: Right kidney: The right kidney measures 12.7 x 4.4 x 7.1 cm. Renal parenchymal echotexture and thickness are normal. There is a 5.7 x 4.4 x 5.4 cm simple cyst at the upper pole and a 2.5 x 2.1 x 3.5 cm simple cyst in the interpolar region. A 5.9 x 4.4 x 6.3 cm cyst at the lower pole demonstrates wall calcification. There is no hydronephrosis or renal calculi. Left Kidney: The left kidney measures 11.7 x 5.5 x 5.2 cm. Renal parenchymal echotexture and thickness are normal. There is a 0.7 x 0.6 x 0.7 cm simple cyst in the interpolar region and a 5.9 x 4.0 x 5.3 cm complex cyst in the interpolar region demonstrating septations with associated vascular flow. There is no hydronephrosis or renal calculi. US/US renal BI IMPRESSION: Complex cysts in both kidneys as described. Renal protocol CT is suggested. Electronically signed by: Jesus Mcintosh MD 05/15/2024 07:09 AM EDT
--- NOTE | ~2024-05-14 | XR_ITS ---
EXAMINATION: XR LUMBOSACRAL SPINE CLINICAL INFORMATION: M54.50 - Low back pain, unspecified COMPARISON: September 17, 2019. TECHNIQUE: Three views of the lumbosacral spine. FINDINGS: Multilevel marginal osteophyte formation and endplate sclerosis decreased intervertebral disc height more conspicuous at L2-3. No acute cortical disruption or malalignment. Facet joint hypertrophy at L5-S1 and to a lesser extent L4-5. Vascular calcifications. Multiple vascular clips overlapping the anterior abdominal aorta and right iliac region. XR/XR lumbar spine 2-3V IMPRESSION: Multilevel thoracolumbar spondylosis without acute fracture or listhesis. Overall slight worsening at L2-3 level. Electronically signed by: Pillo Choi MD 05/14/2024 04:27 PM EDT
== END 2024-05-14 15:30 | disposition home or self-care (01) ==
LOC: HO.US 15:29
PROVIDERS: PCP Internal Medicine; Visit Provider Internal Medicine
DX: N28.1 Cyst of kidney, acquired (principal); M54.50 Low back pain, unspecified
CPT/HCPCS: 72100; 76775

== ENCOUNTER → 2024-05-14 15:32 | Outpatient (BNV) | payer MEDICARE, MEDICAID, SELFPAY | PROVIDERS: PCP Internal Medicine; Visit Provider Radiology Diagnostic Radiology | DX: M54.50 Low back pain, unspecified (principal) | CPT/HCPCS: 72100 ==

== ENCOUNTER 2024-08-14 13:45 | Outpatient (AMB) | payer MEDICARE, MEDICAID, SELFPAY ==
[2024-08-14 13:47] VITALS: BP 146/80; PULSE 86; O2SAT 94; BMI 29.8
--- NOTE | 2024-08-14 13:47 | MHC.PC.OV ---
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 Required: No Accompanied by: Self / Same As Patient Allergies trazodone Adverse Reaction (Uncoded 08/14/24 14:23) dizziness, heart racing Medication List - Last Reconciled 08/14/24 by Henrry Barnard MD aspirin (Adult Low Dose Aspirin) 81 mg PO DAILY 90 days carisoprodol 350 mg PO BEDTIME PRN 30 days clopidogrel 75 mg PO DAILY 90 days lisinopril-hydrochlorothiazide 20-12.5 mg 1 tab PO DAILY 90 days pravastatin 20 mg PO DAILY 90 days Tobacco use date assessed: 08/14/24 Fall risk assessment: No Falls in past year Last assessed Fall Risk: 08/14/24 Dental Screening Dental Screen Date: 08/14/24 Did you have a dental visit in the last 12 months?: No Did you have a dental problem in the last 6 months where you did not have access to dental care?: No Was dental information given to patient?: No HPI 4 month HPI Details Patient comes in today his follow-up visit States that he continues to experience chronic pain over his lower back and neck He would like to know how his lumbar spine x-rays and renal ultrasound done back in April 2024 came out He denies any headaches or dizziness Denies any chest pains, no SOB No nausea/vomiting, no abdominal pain No change in bowel habits noted States that he also had some follow up labs done at [facility] back in April 2024 - to discuss his results [facility] Medical History (Updated 08/17/24 @ 01:03 by Henrry Barnard MD) Vitamin D deficiency Overweight (BMI 25.0-29.9) Peripheral artery disease Insomnia Depression Anxiety Impaired fasting glucose Pure hypercholesterolemia Benign essential hypertension Postlaminectomy syndrome Degenerative lumbar spinal stenosis Femoral-tibial bypass graft occlusion, right Asymptomatic left ventricular systolic dysfunction Renal cyst PVD (peripheral vascular disease) Hyperlipidemia Hypertension Cervical radiculopathy Failed back syndrome Surgical History History of lumbar surgery History of femoropopliteal bypass S/P laminectomy Family History Father Myocardial infarction Mother Alzheimers disease Social History Household Members Other:: Alone Housing: House Alcohol intake: never Patient Tobacco Use Status: Former Tobacco user Tobacco use type: Cigarette e-Cigarette/Vaping Use: Never Used Second Hand Smoke Exposure: Yes service: No Current occupational status: retired Current occupation: Disabled approx 10 years - did various jobs/ right hand dominant Cognitive needs: Yes Hearing needs: No Vision needs: No Questionnaire PHQ-9 Over the last 2 weeks, how often have you been bothered by any of the following problems? 1. Little interest or pleasure in doing things: not at all 2. Feeling down, depressed, or hopeless: not at all 3. Trouble falling or staying asleep, or sleeping too much: not at all 4. Feeling tired or having little energy: not at all 5. Poor appetite or overeating: not at all 6. Feeling bad about yourself - or that you are a failure or have let yourself or your family down: not at all 7. Trouble concentrating on things, such as reading the newspaper or watching television: not at all 8. Moving or speaking so slowly that other people could have noticed. Or the opposite - being so fidgety or restless that you have been moving around a lot more than usual: not at all 9. Thoughts that you would be better off or of hurting yourself in some way: not at all Total score: 0 Depression Screening Interpretation: Negative Depression Screening Done: Yes 78179 - PHQ-9 Billing: Yes Source: Developed by Drs. Jesus Soriano, Sandy Carson, Elvin Leone and colleagues, with an educational oracio from [employer]. Thrive Questionnaire Date Thrive assessed: 08/14/24 I am a: Patient What is your living situation today?: I have a steady place to live Within the past 12 months, did the food you bought not last and you didn't have the money to get more?: I choose not to answer this question Within the past 12 months, did you worry whether your food would run out before you got money to buy more?: I choose not to answer this question Do you have trouble paying for medicines?: No Do you have trouble getting transportation to medical appointments?: No Do you have trouble paying your heating and electricity bill?: No Do you have trouble taking care of your child, family member or friend?: No Do you have trouble with day-to-day activities such as bathing, preparing meals, shopping, managing finances, etc.?: No Are you currently unemployed and looking for a job?: I choose not to answer this question Are you interested in more education?: No Please select the resources that you would like help with: None Currently or been in a relationship where the following occur: No concerns reported THRIVE Score: 0 AUDIT C Alcohol Use Questionnaire (AUDIT-C) 1. How often do you have a drink containing alcohol?: 2-4 times a month 2. How many drinks containing alcohol do you have on a typical day when you are drinking?: 1 or 2 3. How often do you have six or more drinks on one occasion?: Never Total Score: 2 Score Reviewed/Action Taken: Yes NAOMI-7 AMB Questionnaire NAOMI-7 Date NAOMI - 7 assessed: 08/14/24 Feeling nervous, anxious, or on edge: 0 = Not at all Not being able to stop or control worryin = Not at all Worrying too much about different things: 0 = Not at all Trouble relaxin = Not at all Being so restless that it is hard to sit still: 0 = Not at all Becoming easily annoyed or irritable: 0 = Not at all Feeling afraid as if something awful might happen: 0 = Not at all Total NAOMI-7 score (0-4 normal; 5-9 mild; 10-14 moderate; 15-21 severe): 0 Source: Developed by Drs. Jesus Soriano, Sandy Carson, Elvin Leone and colleagues, with an educational oracio from [employer]. Review of Systems Const Denies chills, Reports difficulty sleeping, Reports fatigue, Denies fever(s) and Denies headache(s) ENT Denies dysphagia, Denies dizziness, Denies otalgia, Denies headache(s), Reports neck pain (chronic), Denies odynophagia and Denies sore throat Card Denies chest pain, Denies palpitations and Denies dyspnea Resp Denies chest congestion, Reports cough (occasional), Denies dyspnea and Denies wheezing GI Denies abdominal pain, Denies constipation, Denies dysphagia, Denies heartburn, Denies diarrhea, Denies nausea, Denies odynophagia and Denies vomiting Denies difficulty urinating, Denies dysuria, Denies nocturia and Denies urinary frequency Musc Reports back pain (chronic ), Reports neck pain (chronic) and Reports stiffness (of both hands/fingers) Skin/Breast Denies rash Neuro Denies dizziness and Denies headache(s) Psych Reports anxiety Endo Reports fatigue and Denies palpitations Aller/Immun Denies wheezing Physical exam (Primary Care) Vital Signs: Last Vital Signs Pulse 86 08/14/24 13:47 BP 146/80 H 08/14/24 13:47 Pulse Ox 94 08/14/24 13:47 Oxygen Delivery Method Room Air 08/14/24 13:47 BMI result Body Mass Index 29.8 Tobacco/Smoking Status: Tobacco use Status Tobacco use date assessed 08/14/24 08/14/24 13:57 Patient Tobacco Use Status Former Tobacco user 08/14/24 13:57 Tobacco use type Cigarette 08/14/24 13:57 e-Cigarette/Vaping Use Never Used 08/14/24 13:57 PHQ-9: PHQ-9 Score PHQ-9: Total score 0 08/14/24 14:35 Depression Screening Interpretation: Negative Thrive Assessment: Date of Thrive Assessment Date Thrive assessed 08/14/24 08/14/24 13:57 Currently or been in a relationship where the following occur: No concerns reported Const General: no acute distress and alert HENMT Ears: TM's normal bilaterally and EAC's normal Throat: Yes posterior oropharynx normal and Yes tonsils normal (no TP congestion) Neck Neck: No lymphadenopathy and Yes tender Thyroid: Thyroid normal Resp Auscultation: clear to auscultation bilaterally, no rales, rhonchi (occasional) and no wheezes Cardio Rate: regular rate Rhythm: abnormal rhythm with ectopic beats (occasionally) Heart sounds: no murmurs GI Palpation (GI): Soft to palpation and nontender Auscultation: normal bowel sounds Back/Spine/Pelvis Cervical Spine: Cervical spine tenderness Thoracic/Lumbar Spine: lumbar spinal tenderness Skin Rashes: no rashes Extrem Other: (+) small non-tender nodules noted on exam of the left hand, with slightly prominent IP joints on both hands, especially the MIP General: Yes no clubbing, cyanosis or edema Coding Level of Care Code Est Pt Level 4 (75307) Diagnoses Renal cyst N28.1 Failed back syndrome M96.1 Benign essential hypertension I10 Pure hypercholesterolemia E78.00 Atrial fibrillation, unspecified type I48.91 Atrial fibrillation type: unspecified Peripheral artery disease I73.9 Impaired fasting glucose R73.01 Vitamin D deficiency E55.9 Insomnia, unspecified type G47.00 Insomnia type: unspecified Anxiety F41.9 Episode of recurrent major depressive disorder, unspecified depression episode severity F33.9 Depression Type: major depressive disorder Major depression recurrence: recurrent Active/Remission status: currently active Major depression episode severity: unspecified Overweight (BMI 25.0-29.9) E66.3 Additional Codes PHQ-9 - 24738 - PHQ-9 Billing: Yes ([id number]) Assessment & Plan Assessment & Plan (1) Renal cyst: Code(s): N28.1 - Cyst of kidney, acquired Category: Medical Plan: Patient recalls being advised by previous MD years ago that he has cysts in his kidneys but he was reportedly never sent for any additional tests Per request, he was therefore sent for renal US for further evaluation at his last visit Renal US done back in April 2024 revealed (+) complex cysts in both kidneys and renal protocol CT is recommended - renal CT ordered (2) Failed back syndrome: Code(s): M96.1 - Postlaminectomy syndrome, not elsewhere classified Category: Medical Plan: Patient was discharged from pain management by Dr. Mo a few years ago due to a failed UDS and he still feels, to this day, that he was inappropriately discharged and was never given a chance to explain his side of the story He was reminded that he was suspended and not discharged, and that he can actually go back to pain management again after 05/17/2021 but he chose NOT to do so We have offered to refer him to other pain management practices in the area in the past but have advised him that they mostly offer only injection treatments nowadays, which patient is strongly opposed to as he is insistent that only opioid Rxs have helped him in the past He previously agreed to try going [place] [facility] [place] what [place] can offer him for his chronic low back pain although he remains very hesitant about getting any surgical procedures done - was referred back in June 2022 but it looks like no appointment was ever scheduled for him and he has since changed his mind and does not wish to pursue neurosurgery referral at this time We started him back on Carisoprodol 350 mg last year - he was previously taking this TID PRN but we started him back on just Q HS PRN dosing We also started him on a trial of Duloxetine 30 mg BID previously but he stopped taking it after a week or so as he supposedly did not like the way the medication made him feel Have offered him the option of Gabapentin or Lyrica but he states that he does not like to be taking something regularly and prefers something he can take on an as-needed basis As he has been complaining of increasing low back pain lately, we sent him for updated lumbar spine x-rays for further evaluation, which he had done back in April 2024 Lumbar spine x-rays revealed (+) multilevel thoracolumbar spondylosis without acute fracture or listhesis, with overall slight worsening at the L2-3 level (3) Benign essential hypertension: Code(s): I10 - Essential (primary) hypertension Category: Medical Plan: Reinforced low sodium diet - goal is systolic BP of at least 130 to 140 mm or less Continue Lisinopril-HCT 20-12.5 mg QD (4) Pure hypercholesterolemia: Code(s): E78.00 - Pure hypercholesterolemia, unspecified Category: Medical Plan: Results of his labs done at [facility] back in April 2024 reviewed and discussed with patient Reinforced low cholesterol diet Continue Pravastatin 20 mg QD (5) Atrial fibrillation: Code(s): I48.91 - Unspecified atrial fibrillation Category: Medical Qualifiers: Atrial fibrillation type: unspecified Qualified Code(s): I48.91 - Unspecified atrial fibrillation Plan: Patient was found to be in atrial fibrillation when he presented to the ER in August 2020 with increasing fatigue but he left AMA when admission was recommended He was then referred to [facility] and he underwent pharmacologic stress testing in 03/2021 - tests reportedly all came out normal Continue Clopidogrel 75 mg QD and Aspirin 81 mg QD He has not seen cardiology for follow up since his appointment with [facility] in late 2021 - he was supposedly under the impression that 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 has since moved south to the [place] area and he does not wish to go down there He agreed to see [facility] [place] [place] [facility] [place] for his follow up last year and a referral was made out to cardiology here - it appears that he was scheduled to be seen sometime in September 2023 but it looks like patient did not show up for his appointment He previously declined any new referral as he states that he is feeling okay with no acute symptoms - he again declined offer to refer him to cardiology today Will at least consider sending him for some follow-up echocardiogram later this year or will try to convince him to see Cardiology again at his next follow-up visit (6) Peripheral artery disease: Code(s): I73.9 - Peripheral vascular disease, unspecified Category: Medical Plan: S/P femoropopliteal bypass graft of the RLE (R supl Fem Angioplast & L Common Iliac Stent) back in 2002 This is likely the main reason he is on dual antiplatelet therapy Continue BOTH Aspirin 81 mg QD and Clopidogrel 75 mg QD He also has not seen vascular surgery in a while and has been advised that he should see vascular surgery for regular follow ups but patient states that he will call for referral when he feels ready - he has so far not gotten this done yet (7) Impaired fasting glucose: Code(s): R73.01 - Impaired fasting glucose Category: Medical Plan: His FBS was slightly elevated on his labs back in March 2023 but in-office HgbA1c was normal at 5.4% when checked last year Reinforced low calorie/low carb diet Will recheck his fasting blood sugar again for follow-up (8) Vitamin D deficiency: Code(s): E55.9 - Vitamin D deficiency, unspecified Category: Medical Plan: He is advised that his Vitamin D level was practically non-existent on his labs done back in April 2024 Will start him on Vitamin D3 2000 units QD (9) Insomnia: Code(s): G47.00 - Insomnia, unspecified Category: Medical Qualifiers: Insomnia type: unspecified Qualified Code(s): G47.00 - Insomnia, unspecified Plan: Sleep hygiene reinforced He was previously started on a trial of Trazodone 100 mg Q HS but patient states that he could not tolerate the medication (felt dizzy and had a hung-over feeling; recalls that he also felt his heart racing then after taking the medication) and he stopped taking Trazodone a while back (10) Anxiety: Code(s): F41.9 - Anxiety disorder, unspecified Category: Medical Plan: He was on Clonidine 0.1 mg TID before but patient has since quit taking them - states that he is doing okay without any Rx (11) Depression: Code(s): F32.9 - Major depressive disorder, single episode, unspecified Category: Medical Qualifiers: Depression Type: major depressive disorder Major depression recurrence: recurrent Active/Remission status: currently active Major depression episode severity: unspecified Qualified Code(s): F33.9 - Major depressive disorder, recurrent, unspecified Plan: He was on Mirtazapine 15 mg Q HS but patient self-discontinued his Rx a while back and does not want to go back on the Rx He was also tried on Duloxetine more recently but he also self-discontinued the medication as he supposedly did not like the way Duloxetine made him feel - felt blah on the Rx (12) Overweight (BMI 25.0-29.9): Code(s): E66.3 - Overweight Category: Medical Plan: Reinforced diet; exercise and weight loss are not realistic given his increasing low back pain and joint pains Plan Follow up in 4 months Orders: Orders CT abdomen wo/w IV con 08/14/24 N28.1 - Cyst of kidney, acquired Medications: New cholecalciferol (vitamin D3) 50 mcg PO DAILY 90 caps 3RF 90 days E55.9 - Vitamin D deficiency, unspecified
== END 2024-08-14 14:37 | disposition home or self-care (01) ==
LOC: HO.HMCH 13:46
PROVIDERS: PCP Internal Medicine; Visit Provider Internal Medicine
DX: I10 Essential (primary) hypertension (principal); I48.91 Unspecified atrial fibrillation; N28.1 Cyst of kidney, acquired; M96.1 Postlaminectomy syndrome, not elsewhere classified; E78.00 Pure hypercholesterolemia, unspecified; I73.9 Peripheral vascular disease, unspecified; R73.01 Impaired fasting glucose; E55.9 Vitamin D deficiency, unspecified; G47.00 Insomnia, unspecified; F41.9 Anxiety disorder, unspecified; F33.9 Major depressive disorder, recurrent, unspecified; E66.3 Overweight

== ENCOUNTER → 2024-08-14 13:45 | Outpatient (BNVA) | payer MEDICARE, MEDICAID, SELFPAY | PROVIDERS: PCP Internal Medicine; Visit Provider Internal Medicine | DX: N28.1 Cyst of kidney, acquired (principal); M96.1 Postlaminectomy syndrome, not elsewhere classified; I10 Essential (primary) hypertension; E78.00 Pure hypercholesterolemia, unspecified; I48.91 Unspecified atrial fibrillation; I73.9 Peripheral vascular disease, unspecified; R73.01 Impaired fasting glucose; E55.9 Vitamin D deficiency, unspecified; G47.00 Insomnia, unspecified; F41.9 Anxiety disorder, unspecified; F33.9 Major depressive disorder, recurrent, unspecified; E66.3 Overweight; Z68.29 Body mass index [BMI] 29.0-29.9, adult; Z71.3 Dietary counseling and surveillance | CPT/HCPCS: 96127; 99212 ==

== ENCOUNTER 2025-01-12 16:23 | Outpatient (AMB) | payer MEDICARE, MEDICAID, SELFPAY ==
[2025-01-12 16:38] VITALS: BP 150/78; PULSE 93; O2SAT 94; BMI 31.4
--- NOTE | 2025-01-12 16:38 | MHC.PC.OV ---
Vital Signs 01/12/25 16:38 Height 5 ft 3 in Weight 177 lb 2 oz BMI 31.4 BP 150/78 H Blood Pressure Location Lt brachial Position Sitting Pulse 93 Pulse Source Pulse Oximeter Pulse Oximetry (%) 94 Oxygen Delivery Method Room Air Intake Visit Reasons: Follow Up - see comments Tin Dipper Required: No Accompanied by: Self / Same As Patient Allergies trazodone Adverse Reaction (Uncoded 01/12/25 17:03) dizziness, heart racing Medication List - Last Reconciled 01/12/25 by Henrry Barnard MD aspirin (Adult Low Dose Aspirin) 81 mg PO DAILY 90 days carisoprodol 350 mg PO BEDTIME PRN 30 days cholecalciferol (vitamin D3) 50 mcg PO DAILY 90 days clopidogrel 75 mg PO DAILY 90 days lisinopril-hydrochlorothiazide 20-12.5 mg 1 tab PO DAILY 90 days pravastatin 20 mg PO DAILY 90 days Tobacco use date assessed: 01/12/25 Fall risk assessment: No Falls in past year Last assessed Fall Risk: 01/12/25 Dental Screening Dental Screen Date: 01/12/25 Did you have a dental visit in the last 12 months?: No Did you have a dental problem in the last 6 months where you did not have access to dental care?: No Was dental information given to patient?: No HPI Follow Up - see comments HPI Details Patient comes in today for his follow up visit States that he has been experiencing a recurrent non-productive cough for the past 3 weeks He has also noticed (+) some SOB with exertion lately Adds that he is now scheduled for abdominal CT with renal protocol on 01/22/2025 - this was ordered back in July 2024 but patient states that he's had problems scheduling this properly with radiology over the past couple of months He also reports getting his labs done earlier this month (around December 23 or ) at [facility] to complete his preprocedure requirement Feels that his low back pain has gotten worse lately and this is causing him to have trouble sleeping at night States that he has been taking 1.5 tablets of his muscle relaxant at times to get some relief; he also applies some OTC topical ointments over his lower back every night, takes some OTC Aleve and uses a heating pad to get some relief He denies any headaches or dizziness Denies any exertional chest pains No nausea/vomiting, no abdominal pain No change in bowel habits noted PFS Medical History (Updated 01/12/25 @ 17:07 by Henrry Barnard MD) Vitamin D deficiency Overweight (BMI 25.0-29.9) Peripheral artery disease Insomnia Depression Anxiety Impaired fasting glucose Pure hypercholesterolemia Benign essential hypertension Postlaminectomy syndrome Degenerative lumbar spinal stenosis Femoral-tibial bypass graft occlusion, right Asymptomatic left ventricular systolic dysfunction Renal cyst PVD (peripheral vascular disease) Hyperlipidemia Hypertension Cervical radiculopathy Failed back syndrome Surgical History History of lumbar surgery History of femoropopliteal bypass S/P laminectomy Family History Father Myocardial infarction Mother Alzheimers disease Social History Household Members Other:: Alone Housing: House Alcohol intake: never Patient Tobacco Use Status: Former Tobacco user Tobacco use type: Cigarette e-Cigarette/Vaping Use: Never Used Second Hand Smoke Exposure: Yes service: No Current occupational status: retired Current occupation: Disabled approx 10 years - did various jobs/ right hand dominant Cognitive needs: Yes Hearing needs: No Vision needs: No Questionnaire PHQ-9 Over the last 2 weeks, how often have you been bothered by any of the following problems? 1. Little interest or pleasure in doing things: not at all 2. Feeling down, depressed, or hopeless: not at all 3. Trouble falling or staying asleep, or sleeping too much: not at all 4. Feeling tired or having little energy: not at all 5. Poor appetite or overeating: not at all 6. Feeling bad about yourself - or that you are a failure or have let yourself or your family down: not at all 7. Trouble concentrating on things, such as reading the newspaper or watching television: not at all 8. Moving or speaking so slowly that other people could have noticed. Or the opposite - being so fidgety or restless that you have been moving around a lot more than usual: not at all 9. Thoughts that you would be better off or of hurting yourself in some way: not at all Total score: 0 Depression Screening Interpretation: Negative Depression Screening Done: Yes 71104 - PHQ-9 Billing: Yes Source: Developed by Drs. Jesus Soriano, Sandy Carson, Elvin Leone and colleagues, with an educational oracio from [employer]. Thrive Questionnaire Date Thrive assessed: 01/12/25 I am a: Patient What is your living situation today?: I have a steady place to live Within the past 12 months, did the food you bought not last and you didn't have the money to get more?: I choose not to answer this question Within the past 12 months, did you worry whether your food would run out before you got money to buy more?: I choose not to answer this question Do you have trouble paying for medicines?: No Do you have trouble getting transportation to medical appointments?: No Do you have trouble paying your heating and electricity bill?: No Do you have trouble taking care of your child, family member or friend?: No Do you have trouble with day-to-day activities such as bathing, preparing meals, shopping, managing finances, etc.?: No Are you currently unemployed and looking for a job?: I choose not to answer this question Are you interested in more education?: No Please select the resources that you would like help with: None Currently or been in a relationship where the following occur: No concerns reported THRIVE Score: 0 AUDIT C Alcohol Use Questionnaire (AUDIT-C) 1. How often do you have a drink containing alcohol?: 2-4 times a month 2. How many drinks containing alcohol do you have on a typical day when you are drinking?: 1 or 2 3. How often do you have six or more drinks on one occasion?: Never Total Score: 2 Score Reviewed/Action Taken: Yes NAOMI-7 AMB Questionnaire NAOMI-7 Date NAOMI - 7 assessed: 01/12/25 Feeling nervous, anxious, or on edge: 0 = Not at all Not being able to stop or control worryin = Not at all Worrying too much about different things: 0 = Not at all Trouble relaxin = Not at all Being so restless that it is hard to sit still: 0 = Not at all Becoming easily annoyed or irritable: 0 = Not at all Feeling afraid as if something awful might happen: 0 = Not at all Total NAOMI-7 score (0-4 normal; 5-9 mild; 10-14 moderate; 15-21 severe): 0 Source: Developed by Drs. Jesus Soriano, Sandy Carson, Elvin Leone and colleagues, with an educational oracio from [employer]. Review of Systems Const Denies chills, Reports difficulty sleeping, Reports fatigue, Denies fever(s) and Denies headache(s) ENT Denies dysphagia, Denies dizziness, Denies otalgia, Denies headache(s), Reports neck pain (chronic), Denies odynophagia and Denies sore throat Card Denies chest pain, Denies palpitations and Denies dyspnea Resp Denies chest congestion, Reports cough (occasional), Denies dyspnea and Denies wheezing GI Denies abdominal pain, Denies constipation, Denies dysphagia, Denies heartburn, Denies diarrhea, Denies nausea, Denies odynophagia and Denies vomiting Denies difficulty urinating, Denies dysuria, Denies nocturia and Denies urinary frequency Musc Reports back pain (chronic ), Reports neck pain (chronic) and Reports stiffness (of both hands/fingers) Skin/Breast Denies rash Neuro Denies dizziness and Denies headache(s) Psych Reports anxiety Endo Reports fatigue and Denies palpitations Aller/Immun Denies wheezing Physical exam (Primary Care) Vital Signs: Last Vital Signs Pulse 93 01/12/25 16:38 BP 150/78 H 01/12/25 16:38 Pulse Ox 94 01/12/25 16:38 Oxygen Delivery Method Room Air 01/12/25 16:38 BMI result Body Mass Index 31.4 Tobacco/Smoking Status: Tobacco use Status Tobacco use date assessed 01/12/25 01/12/25 16:42 Patient Tobacco Use Status Former Tobacco user 01/12/25 16:42 Tobacco use type Cigarette 01/12/25 16:42 e-Cigarette/Vaping Use Never Used 01/12/25 16:42 PHQ-9: PHQ-9 Score PHQ-9: Total score 0 01/12/25 17:03 Depression Screening Interpretation: Negative Thrive Assessment: Date of Thrive Assessment Date Thrive assessed 01/12/25 01/12/25 16:42 Currently or been in a relationship where the following occur: No concerns reported Const General: no acute distress and alert HENMT Ears: TM's normal bilaterally and EAC's normal Throat: Yes posterior oropharynx normal and Yes tonsils normal (no TP congestion) Neck Neck: No lymphadenopathy and Yes tender Thyroid: Thyroid normal Resp Auscultation: clear to auscultation bilaterally, no rales, rhonchi (occasional) and no wheezes Cardio Rate: regular rate Rhythm: abnormal rhythm with ectopic beats (occasionally) Heart sounds: no murmurs GI Palpation (GI): Soft to palpation and nontender Auscultation: normal bowel sounds Back/Spine/Pelvis Cervical Spine: Cervical spine tenderness Thoracic/Lumbar Spine: lumbar spinal tenderness Skin Rashes: no rashes Extrem Other: (+) small non-tender nodules noted on exam of the left hand, with slightly prominent IP joints on both hands, especially the MIP General: Yes no clubbing, cyanosis or edema Coding Level of Care Code Est Pt Level 4 (46633) Diagnoses Renal cyst N28.1 Failed back syndrome M96.1 Benign essential hypertension I10 Pure hypercholesterolemia E78.00 Atrial fibrillation, unspecified type I48.91 Atrial fibrillation type: unspecified Peripheral artery disease I73.9 Impaired fasting glucose R73.01 Vitamin D deficiency E55.9 Insomnia, unspecified type G47.00 Insomnia type: unspecified Anxiety F41.9 Episode of recurrent major depressive disorder, unspecified depression episode severity F33.9 Active/Remission status: currently active Depression Type: major depressive disorder Major depression episode severity: unspecified Major depression recurrence: recurrent Overweight (BMI 25.0-29.9) E66.3 Additional Codes PHQ-9 - 05337 - PHQ-9 Billing: Yes ([id number]) Assessment & Plan Assessment & Plan (1) Renal cyst: Code(s): N28.1 - Cyst of kidney, acquired Category: Medical Plan: Patient recalls being advised by previous MD years ago that he has cysts in his kidneys but he was reportedly never sent for any additional tests Per request, he was then sent for renal US for further evaluation earlier this year, which revealed (+) complex cysts in both kidneys when his US was done back in April [address] was recommended and ordered and he is now scheduled to have this done in a couple of weeks on 01/22/2025 (2) Failed back syndrome: Code(s): M96.1 - Postlaminectomy syndrome, not elsewhere classified Category: Medical Plan: Patient was discharged from pain management by Dr. Mo a few years ago due to a failed UDS and he still feels, to this day, that he was inappropriately discharged and was never given a chance to explain his side of the story He was reminded that he was suspended and not discharged, and that he can actually go back to pain management again after 05/17/2021 but he chose NOT to do so We have offered to refer him to other pain management practices in the area in the past but have advised him that they mostly offer only injection treatments nowadays, which patient is strongly opposed to as he is insistent that only opioid Rxs have helped him in the past He previously agreed to try going to the new Sp[facility] here at [facility] to see what they can offer him for his chronic low back pain although he remains very hesitant about getting any surgical procedures done - was referred back in June 2022 but it looks like no appointment was ever scheduled for him and he has since changed his mind and does not wish to pursue neurosurgery referral at this time We started him back on Carisoprodol 350 mg last year - he was previously taking this TID PRN but we started him back on just Q HS PRN dosing We also started him on a trial of Duloxetine 30 mg BID previously but he stopped taking it after a week or so as he supposedly did not like the way the medication made him feel Have offered him the option of Gabapentin or Lyrica but he states that he does not like to be taking something regularly and prefers something he can take on an as-needed basis As he has been complaining of increasing low back pain lately, we sent him for updated lumbar spine x-rays for further evaluation, which he had done back in April 2024 Lumbar spine x-rays revealed (+) multilevel thoracolumbar spondylosis without acute fracture or listhesis, with overall slight worsening at the L2-3 level Will try sending him in a prescription of Lidocaine 5% patches to use on his lower back QD PRN (3) Benign essential hypertension: Code(s): I10 - Essential (primary) hypertension Category: Medical Plan: Reinforced low sodium diet - goal is systolic BP of at least 130 to 140 mm or less Continue Lisinopril-HCT 20-12.5 mg QD (4) Pure hypercholesterolemia: Code(s): E78.00 - Pure hypercholesterolemia, unspecified Category: Medical Plan: We have not received any follow up lab results since he had labs done earlier this year at [facility] back in April 2024 Reinforced low cholesterol diet Continue Pravastatin 20 mg QD Will recheck his labs and fasting lipids in 3 months for follow up (5) Atrial fibrillation: Code(s): I48.91 - Unspecified atrial fibrillation Category: Medical Qualifiers: Atrial fibrillation type: unspecified Qualified Code(s): I48.91 - Unspecified atrial fibrillation Plan: Patient was found to be in atrial fibrillation when he presented to the ER in August 2020 with increasing fatigue but he left AMA when admission was recommended He was then referred to [facility] and he underwent pharmacologic stress testing in 03/2021 - tests reportedly all came out normal Continue Clopidogrel 75 mg QD and Aspirin 81 mg QD He has not seen cardiology for follow up since his appointment with [facility] in late 2021 - he was supposedly under the 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 and he does not wish to go down there He agreed to see [facility] instead for his follow up last year and a referral was made out to cardiology here - it appears that he was scheduled to be seen sometime in September 2023 but it looks like patient did not show up for his appointment He previously declined any new referral as he states that he is feeling okay with no acute symptoms - he has also repeatedly declined offer to refer him to cardiology As he is now experiencing some symptoms of recurrent dyspnea, with on and off coughing, will send him for repeat echocardiogram and 12;lead EKG PIERRE for further evaluation Will also refer him again to cardiology for urgent consultation - patient now agrees to see cardiology (6) Peripheral artery disease: Code(s): I73.9 - Peripheral vascular disease, unspecified Category: Medical Plan: S/P femoropopliteal bypass graft of the RLE (R supl Fem Angioplast & L Common Iliac Stent) back in 2002 This is likely the main reason he is on dual antiplatelet therapy Continue BOTH Aspirin 81 mg QD and Clopidogrel 75 mg QD He also has not seen vascular surgery in a while and has been advised that he should see vascular surgery for regular follow ups but patient states that he will call for referral when he feels ready - he has so far not gotten this done yet (7) Impaired fasting glucose: Code(s): R73.01 - Impaired fasting glucose Category: Medical Plan: His FBS was slightly elevated on his labs back in March 2023 but in-office HgbA1c was normal at 5.4% when checked last year Reinforced low calorie/low carb diet Will recheck his fasting blood sugar again in a few months for follow-up (8) Vitamin D deficiency: Code(s): E55.9 - Vitamin D deficiency, unspecified Category: Medical Plan: Continue Vitamin D3 2000 units QD (9) Insomnia: Code(s): G47.00 - Insomnia, unspecified Category: Medical Qualifiers: Insomnia type: unspecified Qualified Code(s): G47.00 - Insomnia, unspecified Plan: Sleep hygiene reinforced He was previously started on a trial of Trazodone 100 mg Q HS but patient states that he could not tolerate the medication (felt dizzy and had a hung-over feeling; recalls that he also felt his heart racing then after taking the medication) and he stopped taking Trazodone a while back (10) Anxiety: Code(s): F41.9 - Anxiety disorder, unspecified Category: Medical Plan: He was on Clonidine 0.1 mg TID before but patient has since quit taking them - states that he is doing okay without any Rx (11) Depression: Code(s): F32.9 - Major depressive disorder, single episode, unspecified Category: Medical Qualifiers: Active/Remission status: currently active Depression Type: major depressive disorder Major depression episode severity: unspecified Major depression recurrence: recurrent Qualified Code(s): F33.9 - Major depressive disorder, recurrent, unspecified Plan: He was on Mirtazapine 15 mg Q HS but patient self-discontinued his Rx a while back and does not want to go back on the Rx He was also tried on Duloxetine more recently but he also self-discontinued the medication as he supposedly did not like the way Duloxetine made him feel - felt blah on the Rx (12) Overweight (BMI 25.0-29.9): Code(s): E66.3 - Overweight Category: Medical Plan: Reinforced diet; exercise and weight loss are not realistic given his increasing low back pain and joint pains Plan Follow up in 3 months Orders: Orders Lipid Panel 3 Months E78.00 - Pure hypercholesterolemia, unspecified TSH reflex Free T4 3 Months E78.00 - Pure hypercholesterolemia, unspecified CA echo transthoracic complete 01/12/25 R06.09 - Other forms of dyspnea ECG 12 lead EKG 01/12/25 I10 - Essential (primary) hypertension, I48.91 - Unspecified atrial fibrillation, R06.09 - Other forms of dyspnea Complete Blood Count Auto Diff 3 Months D64.9 - Anemia, unspecified Comprehensive [place]. Panel Fast 3 Months E78.00 - Pure hypercholesterolemia, unspecified UA CC w/rflx Micro + Cult 3 Months R30.0 - Dysuria Vitamin D 25-OH Total 3 Months E55.9 - Vitamin D deficiency, unspecified Referrals Cardiology Referral E78.00 - Pure hypercholesterolemia, unspecified, I10 - Essential (primary) hypertension, I48.91 - Unspecified atrial fibrillation, R06.09 - Other forms of dyspnea Medications: New Lidocan IV 5% (lidocaine) leave on most painful area for up to 12 hrs 1 patch topical DAILY PRN 30 ea 2RF pain NS
== END 2025-01-12 17:25 | disposition home or self-care (01) ==
LOC: HO.HMCH 16:24
PROVIDERS: PCP Internal Medicine; Visit Provider Internal Medicine
DX: N28.1 Cyst of kidney, acquired (principal); I48.91 Unspecified atrial fibrillation; M96.1 Postlaminectomy syndrome, not elsewhere classified; I10 Essential (primary) hypertension; E78.00 Pure hypercholesterolemia, unspecified; I73.9 Peripheral vascular disease, unspecified; R73.01 Impaired fasting glucose; E55.9 Vitamin D deficiency, unspecified; G47.00 Insomnia, unspecified; F41.9 Anxiety disorder, unspecified; F33.9 Major depressive disorder, recurrent, unspecified; E66.3 Overweight

== ENCOUNTER → 2025-01-12 16:23 | Outpatient (BNVA) | payer MEDICARE, MEDICAID, SELFPAY | PROVIDERS: PCP Internal Medicine; Visit Provider Internal Medicine | DX: N28.1 Cyst of kidney, acquired (principal); M96.1 Postlaminectomy syndrome, not elsewhere classified; I10 Essential (primary) hypertension; E78.00 Pure hypercholesterolemia, unspecified; I48.91 Unspecified atrial fibrillation; I73.9 Peripheral vascular disease, unspecified; R73.01 Impaired fasting glucose; E55.9 Vitamin D deficiency, unspecified; G47.00 Insomnia, unspecified; F41.9 Anxiety disorder, unspecified; F33.9 Major depressive disorder, recurrent, unspecified; E66.3 Overweight; Z68.31 Body mass index [BMI] 31.0-31.9, adult; Z71.3 Dietary counseling and surveillance | CPT/HCPCS: 96127; 99212 ==

== ENCOUNTER → 2025-01-20 11:05 | Outpatient (REF) | payer MEDICARE, MEDICAID, SELFPAY ==
--- NOTE | 2025-01-20 11:09 | ECG_ITS ---
Test Reason : DYSPNEA Blood Pressure : */* mmHG Vent. Rate : 80 BPM Atrial Rate : 80 BPM P-R Int : 170 ms QRS Dur : 78 ms QT Int : 386 ms P-R-T Axes : 30 -1 29 degrees QTcB Int : 445 ms Normal sinus rhythm Normal ECG When compared with ECG of 11-Sep-2020 11:08, PACs not seen Referred By: Henrry Barnard Electronically Signed By: SAL HULL
== END ==
LOC: HO.CARD 11:05
PROVIDERS: PCP Internal Medicine; Visit Provider Internal Medicine
DX: R06.09 Other forms of dyspnea (principal); I10 Essential (primary) hypertension; I48.91 Unspecified atrial fibrillation
CPT/HCPCS: 93005

== ENCOUNTER → 2025-01-20 11:09 | Outpatient (BNV) | payer MEDICARE, MEDICAID, SELFPAY | PROVIDERS: PCP Internal Medicine; Visit Provider Internal Medicine | DX: R06.00 Dyspnea, unspecified (principal) | CPT/HCPCS: 93010 ==

== ENCOUNTER 2025-01-22 13:30 | Outpatient (REF) | payer MEDICARE, MEDICAID, SELFPAY ==
--- NOTE | ~2025-01-22 | CT_ITS ---
EXAMINATION: CT ABDOMEN WITHOUT AND WITH CONTRAST CLINICAL INFORMATION: Renal cyst COMPARISON: Previous renal ultrasound April 2024 TECHNIQUE: Contiguous axial thin section helical images of the abdomen were performed before and after the administration of oral contrast and mL of Omnipaque 350 intravenous contrast. The data set was reformatted in the coronal and sagittal planes and reviewed on an independent workstation. This CT examination was performed using dose optimization techniques as appropriate, variously including the following: *Automated exposure control *Adjustment of mA and/or kV according to patient size (this includes techniques or standardized protocols for targeted exams where dose is matched to indication/reason for exam; i.e. extremities or head) *Use of iterative reconstruction technique FINDINGS: LUNG BASES: Scarring or subsegmental atelectasis in the medial segment of the right middle lobe, inferior segment of the lingula and anterior basal segment of the left lower lobe. LIVER, GALLBLADDER, AND BILIARY TREE: Liver normal in size and contour and attenuation. No focal lesion. Normal gallbladder. No intrahepatic biliary duct dilatation. Dilated common bile duct measuring 10 to 11 mm. PANCREAS: Small calcification in the tail of the pancreas. Pancreas otherwise normal. The main pancreatic duct does not appear dilated. SPLEEN: There is a linear cleft in the spleen. This could be related to old infarct or trauma. Normal-size spleen. No suspicious splenic lesion. ADRENAL GLANDS AND KIDNEYS: The adrenal glands are normal. 5 x 6 cm cyst exophytic to the lateral upper pole of the right kidney. Hounsfield units precontrast measure 4 and postcontrast measures 7.6 without evidence of enhancement. 2.3 x 3 cm peripelvic cyst in the lower pole. Hounsfield units precontrast measure 9. Hounsfield units postcontrast measure 10 without appreciable enhancement. 4.6 x 4.6 cm cyst in the medial mid to lower pole of the right kidney with peripheral wall calcification. Hounsfield units precontrast measure 14.7. Hounsfield units postcontrast measure 18.9 without appreciable enhancement. 4.1 x 5.2 cm left peripelvic cyst with nonenhancing thin septation.. Hounsfield units precontrast measure 6. Hounsfield units postcontrast measure 12 without appreciable enhancement. Additional smaller simple appearing renal cysts, right greater than left. Bilateral renal calcifications probably representing vascular calcifications. No hydronephrosis.. BOWEL LOOPS: Normal LYMPH NODES: Small retroperitoneal and portacaval lymph nodes. No enlarged lymph nodes. VASCULAR: Severe atherosclerotic disease. There is a graft originating from the lower abdominal aorta coursing toward the right pelvis. The right common iliac artery appears occluded. There is a severe calcified plaque and stent seen in the visualized proximal left common iliac artery. BONES: Degenerative changes of the spine. Small umbilical hernia containing fat. CT/CT abdomen wo/w IV con IMPRESSION: Bilateral renal cysts representing simple and Bosniak type II F cysts. No renal mass. Slightly dilated common bile duct. No intrahepatic biliary duct dilatation a normal-appearing gallbladder. Recommend further evaluation with MRCP. Severe atherosclerotic disease. Fleischner guidelines were followed. Electronically signed by: Davina Goetz MD 01/22/2025 04:04 PM [facility]
[2025-01-22] MEDS: iohexoL 350 MG/ML 100 ML INFUS..BTL IV (15:27)
[2025-01-25 09:43] LABS: Creatinine POC 0.9 mg/dL (0.5-1.4); GFR POC > 60
== END 2025-01-22 13:31 | disposition home or self-care (01) ==
LOC: HO.CT 13:30
PROVIDERS: PCP Internal Medicine; Visit Provider Internal Medicine
DX: N28.1 Cyst of kidney, acquired (principal)
CPT/HCPCS: 74170; 82565; Q9967

== ENCOUNTER → 2025-01-22 13:32 | Outpatient (BNV) | payer MEDICARE, MEDICAID, SELFPAY | PROVIDERS: PCP Internal Medicine; Visit Provider Radiology Diagnostic Radiology | DX: N28.1 Cyst of kidney, acquired (principal) | CPT/HCPCS: 74170 ==